=== PATIENT | male | born 1945 | race Caucasian/White ===

== ENCOUNTER 2016-07-13 12:41 | Outpatient (CLI) ==
[2016-07-13 13:16] LABS: PROTHROMBIN TIME 38.1 SEC (9.3-11.0)
== END 2016-07-13 12:42 | disposition home or self-care (01) ==
LOC: NONPT 12:41
PROVIDERS: ATTEND Internal Medicine
DX: Z51.81 Encounter for therapeutic drug level monitoring (principal); Z79.01 Long term (current) use of anticoagulants
CPT/HCPCS: 85610

== ENCOUNTER 2016-07-28 13:55 | Outpatient (CLI) | END 2016-07-28 13:56 | disposition home or self-care (01) | LOC: NONPT 13:55 | PROVIDERS: ATTEND Internal Medicine | DX: Z51.81 Encounter for therapeutic drug level monitoring (principal); Z79.01 Long term (current) use of anticoagulants | CPT/HCPCS: 85610 ==

== ENCOUNTER 2016-08-12 13:18 | Outpatient (CLI) ==
[2016-08-12 13:36] LABS: PROTHROMBIN TIME 27.2 SEC (9.3-11.0)
== END 2016-08-12 13:19 | disposition home or self-care (01) ==
LOC: NONPT 13:18
PROVIDERS: ATTEND Internal Medicine
DX: Z51.81 Encounter for therapeutic drug level monitoring (principal); Z79.01 Long term (current) use of anticoagulants
CPT/HCPCS: 85610

== ENCOUNTER 2017-06-20 08:30 | Outpatient (CLI) ==
[2017-06-20 16:30] VITALS: BMI 49.8
== END 2017-06-20 08:31 | disposition left against medical advice (07) ==
LOC: AMBL 08:30
PROVIDERS: ATTEND Internal Medicine
DX: E66.9 Obesity, unspecified (principal); W07.XXXA Fall from chair, initial encounter

== ENCOUNTER 2017-06-20 16:21 | Emergency (ER) ==
[2017-06-20] MEDS ORDERED: SODIUM CHLORIDE 1,000 ML IV STA ×2 (16:29)
[2017-06-20 16:30] VITALS: TEMP 99.6; BMI 49.8
[2017-06-20] MEDS ORDERED: ROCEPHIN 2 GM in SODIUM CHLORIDE 100 ML IV STA (16:30)
[2017-06-20] MEDS ORDERED: LOPRESSOR IVP STA (16:34)
[2017-06-20 16:37] LABS: BASOPHILS % (AUTO) 0.2 % (0.0-3.0); HEMATOCRIT 39.9 % (42.0-52.0); HEMOGLOBIN 13.4 g/dl (14.0-18.0); IMMATURE GRANULOCYTE % (AUTO) 0.6 % (0.0-5.0); LYMPHOCYTES # (AUTO) 0.4 K/uL (0.60-3.4); LYMPHOCYTES % (AUTO) 3.1 (10.0-50.0); MEAN CORPUSCULAR HEMOGLOBIN 29.6 pg (27.0-31.0); MEAN CORPUSCULAR HGB CONC 33.6 (31.8-35.4); MEAN CORPUSCULAR VOLUME 88.1 fl (80.0-94.0); MONOCYTES # (AUTO) 1.5 K/uL (0.4-2.0); MONOCYTES % (AUTO) 10.8 (0-10); NEUTROPHILS % (AUTO) 85.3; PLATELET COUNT 248 10^3/uL (140-440); RED BLOOD COUNT 4.53 10^6/ul (4.70-6.10); WHITE BLOOD COUNT 14.04 K/ul (4.2-10.2)
[2017-06-20] MEDS ORDERED: ROCEPHIN ONE (16:39)
[2017-06-20 16:42] LABS: ABG PCO2 32.3 mmHg (35-45); ABG PH 7.441 (7.35-7.45)
[2017-06-20 16:43] LABS: ABG BASE EXCESS -2 (-2.0-2.0); ABG TCO2 23 (22.0-28.0)
--- NOTE | 2017-06-20 16:56 | DI ---
EXAM: Single frontal view of the chest HISTORY: Shortness of breath. COMPARISON: None FINDINGS: Cardiomediastinal silhouette is enlarged. There is pulmonary vascular indistinctness and g round-glass. There is no pneumothorax. Questionable pleural effusions are present. There is minima l ground-glass in the lung bases. The osseous structures are unremarkable. IMPRESSION: 1. Cardiomegaly with pulmonary vascular indistinctness suggestive of pulmonary edema. 2. There is questionable small pleural effusions with bilateral lower lobe ground-glass and may repr esent a component of atelectasis.
[2017-06-20 17:18] LABS: PARTIAL THROMBOPLASTIN TIME 42.4 SEC (23.9-40.0)
[2017-06-20 17:21] LABS: PROTHROMBIN TIME 31.8 SEC (9.3-11.0)
[2017-06-20 17:28] LABS: ALBUMIN 2.5 g/dL (3.4-5.0); ALBUMIN/GLOBULIN RATIO 0.44; ANION GAP 17.1; BILIRUBIN,TOTAL 0.81 mg/dL (0.00-1.20); BUN/CREATININE RATIO 17.64; CALCIUM 9.1 mg/dL (8.2-10.2); CREATININE 2.04 mg/dL (0.60-1.10); POTASSIUM 3.1 mmol/L (3.5-5.1); TOTAL PROTEIN 8.2 g/dL (5.8-8.1); TROPONIN I 0.151 ng/ml (0.0000-0.4000)
--- NOTE | 2017-06-20 17:40 | ED.PDOC ---
General Stated Complaint: weakness Time Seen by Physician: 16:22 (was on the tolet for a while he legs went numb tried to get up and couldnt and fell) Mode of Arrival: Ambulance Information Source: Patient Exam Limitations: No limitations, Other (arrived in no acute distress but had Afib with RVR no neuro deficits noted ) Nursing and Triage Documentation Reviewed and Agree: Yes <OLIVER RICHMOND - Last Filed: 06/20/17 18:01> <JUN BIRMINGHAM - Last Filed: 06/22/17 19:46> ED Provider: Dr. JUN BIRMINGHAM Chief Complaint: Weakness Review of Systems - Review Of Systems Constitutional: Reports: No symptoms Eyes: Reports: No symptoms Ears, Nose, Mouth, Throat: Reports: No symptoms Respiratory: Reports: Short of air Cardiac: Reports: Irregular heart rate, Palpitations GI: Reports: No symptoms : Reports: No symptoms Musculoskeletal: Reports: Joint pain Skin: Reports: No symptoms Neurological: Reports: No symptoms Endocrine: Reports: No symptoms Hematologic/Lymphatic: Reports: No symptoms All Other Systems: Reviewed and Negative <JUN BIRMINGHAM - Last Filed: 06/22/17 19:46> Past Medical History - Past Medical History Previously Healthy: No Endocrine: Reports: None Cardiovascular: Reports: Hypertension Respiratory: Reports: Unknown Hematological: Reports: Unknown Gastrointestinal: Reports: Unknown Genitourinary: Reports: Unknown Neuro/Psych: Reports: Unknown Musculoskeletal: Reports: Unknown Cancer: Reports: Unknown - Surgical History General Surgical History: Reports: None - Family History Family History: Reports: None - Social History Smoking Status: Former smoker Hx Substance Use: No Alcohol Screening: None <OLIVER RICHMOND - Last Filed: 06/20/17 18:01> - Past Medical History Previously Healthy: No Endocrine: Reports: Unknown Cardiovascular: Reports: Hypertension, A-Fib Respiratory: Reports: Unknown Hematological: Reports: Unknown Gastrointestinal: Reports: Unknown Genitourinary: Reports: Unknown Neuro/Psych: Reports: Unknown Musculoskeletal: Reports: Unknown Cancer: Reports: Unknown - Surgical History General Surgical History: Reports: Unknown - Family History Family History: Reports: Unknown <JUN BIRMINGHAM - Last Filed: 06/22/17 19:46> Physical Exam - Physical Exam Appearance: Ill-appearing Ill-appearing: Moderate Pain Distress: Moderate Eyes: ANDREIA, EOMI, Conjunctiva clear ENT: Dry mucosa Respiratory: Breath sounds diminished, Rhonchi Cardiovascular: Irregular rhythm, Tachycardia GI/: Soft, Nontender, No masses, Bowel sounds normal, No Organomegaly Musculoskeletal: Edema (bilatera lower ext see photos) Skin: Warm, Dry, Normal color Neurological: Sensation intact, Motor intact, Reflexes intact, Cranial nerves intact, Alert, Oriented Psychiatric: Affect appropriate, Mood appropriate <OLIVER RICHMOND - Last Filed: 06/20/17 18:01> - Physical Exam Appearance: Obese Eyes: ANDREIA, EOMI, Conjunctiva clear ENT: Ears normal, Nose normal, Oropharynx normal Respiratory: Airway patent, Breath sounds clear, Breath sounds equal, Respirations nonlabored Cardiovascular: RRR, Pulses normal, No rub, No murmur GI/: Soft, Nontender, No masses, Bowel sounds normal, No Organomegaly Musculoskeletal: Normal strength, ROM intact, No edema, No calf tenderness Skin: Warm, Dry, Normal color Neurological: Sensation intact, Motor intact, Reflexes intact, Cranial nerves intact, Alert, Oriented Psychiatric: Affect appropriate, Mood appropriate <JUN BIRMINGHAM - Last Filed: 06/22/17 19:46> Interpretation - Stem Roller Rhythm: Other (Afib with RVR) <OLIVER RICHMOND - Last Filed: 06/20/17 18:01> Physician Notification - Case Discussed Physician Notified: dr johnson <JUN BIRMINGHAM - Last Filed: 06/22/17 19:46> Critical Care Note - Critical Care Note Total Time (mins): 2 <OLIVER RICHMOND - Last Filed: 06/20/17 18:01> - Critical Care Note Total Time (mins): 30 <JUN BIRMINGHAM - Last Filed: 06/22/17 19:46> Course - Course Hematology/Chemistry: 06/20/17 16:30 06/20/17 16:30 <OLIVER RICHMOND - Last Filed: 06/20/17 18:01> - Course Hematology/Chemistry: 06/20/17 16:30 06/20/17 16:30 <JUN BIRMINGHAM - Last Filed: 06/22/17 19:46> - Course Orders, Labs, Meds: Lab Review 06/20/17 06/20/17 06/20/17 16:28 16:30 16:30 WBC 14.04 H RBC 4.53 L Hgb 13.4 L Hct 39.9 L MCV 88.1 MCH 29.6 MCHC 33.6 RDW Coeff of Julian 15.9 H Plt Count 248 Immature Gran % (Auto) 0.6 Neut % (Auto) 85.3 Lymph % (Auto) 3.1 L [place] % (Auto) 10.8 H Eos % (Auto) 0.0 Baso % (Auto) 0.2 Immature Gran # (Auto) 0.1 Neut # 12.0 H Lymph # 0.4 L [place] # 1.5 Eos # 0.0 Baso # 0.0 PT INR APTT D-Dimer (Manual) Puncture Site Rr O2 Saturation 91.0 L ABG pH 7.441 ABG pCO2 32.3 L ABG pO2 57.0 L* ABG HCO3 22.0 ABG Total CO2 23 ABG Base Excess -2 FiO2 % 21.0 Sodium 137 Potassium 3.1 L Chloride 103 Carbon Dioxide 20 L Anion Gap 17.1 BUN 36 H Creatinine 2.04 H Estimated GFR (MDRD) 32.00 BUN/Creatinine Ratio 17.64 Glucose 136 H Lactic Acid Calcium 9.1 Total Bilirubin 0.81 AST 158 H ALT 31 Alkaline Phosphatase 69 Total Creatine Kinase 92679 CK-MB (CK-2) 20.1 H* CK-MB (CK-2) % 0.89963 Troponin I 0.1510 Total Protein 8.2 H Albumin 2.5 L Globulin 5.7 Albumin/Globulin Ratio 0.44 Procalcitonin TSH 0.766 Free T4 1.01 06/20/17 06/20/17 06/20/17 16:30 16:30 16:30 WBC RBC Hgb Hct MCV MCH MCHC RDW Coeff of Julian Plt Count Immature Gran % (Auto) Neut % (Auto) Lymph % (Auto) [place] % (Auto) Eos % (Auto) Baso % (Auto) Immature Gran # (Auto) Neut # Lymph # [place] # Eos # Baso # PT 31.8 H INR 3.23 APTT 42.4 H D-Dimer (Manual) 3684.63 Puncture Site O2 Saturation ABG pH ABG pCO2 ABG pO2 ABG HCO3 ABG Total CO2 ABG Base Excess FiO2 % Sodium Potassium Chloride Carbon Dioxide Anion Gap BUN Creatinine Estimated GFR (MDRD) BUN/Creatinine Ratio Glucose Lactic Acid Calcium Total Bilirubin AST ALT Alkaline Phosphatase Total Creatine Kinase CK-MB (CK-2) CK-MB (CK-2) % Troponin I Total Protein Albumin Globulin Albumin/Globulin Ratio Procalcitonin 1.99 TSH Free T4 06/20/17 16:52 WBC RBC Hgb Hct MCV MCH MCHC RDW Coeff of Julian Plt Count Immature Gran % (Auto) Neut % (Auto) Lymph % (Auto) [place] % (Auto) Eos % (Auto) Baso % (Auto) Immature Gran # (Auto) Neut # Lymph # [place] # Eos # Baso # PT INR APTT D-Dimer (Manual) Puncture Site O2 Saturation ABG pH ABG pCO2 ABG pO2 ABG HCO3 ABG Total CO2 ABG Base Excess FiO2 % Sodium Potassium Chloride Carbon Dioxide Anion Gap BUN Creatinine Estimated GFR (MDRD) BUN/Creatinine Ratio Glucose Lactic Acid 17.8 Calcium Total Bilirubin AST ALT Alkaline Phosphatase Total Creatine Kinase CK-MB (CK-2) CK-MB (CK-2) % Troponin I Total Protein Albumin Globulin Albumin/Globulin Ratio Procalcitonin TSH Free T4 Orders Category Date Time Status ABG DRAW REQUEST Stat CARDIO 06/20/17 16:28 Completed EKG-(ED ONLY) Stat CARDIO 06/20/17 16:27 Completed EKG-(ED ONLY) Stat CARDIO 06/20/17 17:00 Completed TRANSFER TO OUTSIDE FACILITY .TO [facility] 06/20/17 20:29 Active ([place], [place]) WRITE TRANSFER/SBAR NOTE ONCE CARE 06/20/17 20:29 Completed DISCHARGE ASSESSMENT ONCE DISCHARGE 06/20/17 20:29 Completed WRITE DISCHARGE NOTE ONCE DISCHARGE 06/20/17 20:29 Completed ED IV/MEDIPORT/POWERPORT .ONCE EMERGENCY 06/20/17 16:27 Active ABG Stat LAB 06/20/17 16:28 Completed BLOOD CULTURE Stat LAB 06/20/17 16:55 Results CBC W/ AUTO DIFF Stat LAB 06/20/17 16:30 Completed COMPREHENSIVE METABOLIC PANEL Stat LAB 06/20/17 16:30 Completed CREATINE KINASE Stat LAB 06/20/17 16:30 Completed D-DIMER Stat LAB 06/20/17 16:30 Completed FREE T4 (FREE THYROXINE) Stat LAB 06/20/17 16:30 Completed LACTIC ACID Stat LAB 06/20/17 16:52 Completed PARTIAL THROMBOPLASTIN TIME Stat LAB 06/20/17 16:30 Completed PROCALCITONIN Stat LAB 06/20/17 16:30 Completed PT WITH INR Stat LAB 06/20/17 16:30 Completed THYROID STIMULATING HORMONE Stat LAB 06/20/17 16:30 Completed TROPONIN I Stat LAB 06/20/17 16:30 Completed 0.9 % Sodium Chloride [Saline Flush] MEDS 06/20/17 16:27 Discontinued 1 syr IVF PRN PRN 0.9 % Sodium Chloride [Sodium Chloride] 100 ml MEDS 06/20/17 20:00 Discontinued Diltiazem HCl Inj [Cardizem Inj] 125 mg IV 10 mg/hr Ceftriaxone Sodium [Rocephin] MEDS 06/20/17 16:39 Discontinued 2 gm .ROUTE .STK-MED ONE Ceftriaxone Sodium [Rocephin] 2 gm MEDS 06/20/17 16:30 Discontinued 0.9 % Sodium Chloride [Sodium Chloride] 100 ml IV ONCE Diltiazem HCl Inj [Cardizem Inj] MEDS 06/20/17 18:18 Discontinued 15 mg IVP ONCE STA Metoprolol Tartrate [Lopressor] MEDS 06/20/17 16:34 Discontinued 2.5 mg IVP ONCE STA Sodium Chloride 0.9% [Sodium Chloride] 1,000 ml MEDS 06/20/17 16:29 Discontinued IV 125 mls/hr Sodium Chloride 0.9% [Sodium Chloride] 1,000 ml MEDS 06/20/17 16:29 Discontinued IV BOLUS CHEST, 1V AP ONLY Stat RADS 06/20/17 16:[address] ABDOMEN/PELVIS WO CONTRAST Stat RADS 06/20/17 18:[address] PELVIS W/O CONTRAST Stat RADS 06/20/17 18:51 Completed Medications Discontinued Medications Generic Name Dose Route Start Last Admin Trade Name Freq PRN Reason Stop Dose Admin Diltiazem HCl 15 mg 06/20/17 18:18 06/20/17 18:24 Cardizem Inj IVP 06/20/17 18:19 15 mg ONCE STA Administration Sodium Chloride 1,000 mls @ 1,000 mls/hr 06/20/17 16:29 06/20/17 16:59 Sodium Chloride IV 06/20/17 17:28 Not Given BOLUS STA Sodium Chloride 1,000 mls @ 125 mls/hr 06/20/17 16:29 06/20/17 16:53 Sodium Chloride IV 06/21/17 00:28 125 mls/hr .Q8H STA Administration Ceftriaxone Sodium 2 gm/ 100 mls @ 100 mls/hr 06/20/17 16:30 06/20/17 16:53 Sodium Chloride IV 06/20/17 17:29 100 mls/hr ONCE STA Administration Diltiazem HCl 125 mg/ Sodium 125 mls @ 10 mls/hr 06/20/17 20:00 06/20/17 20: 02 Chloride IV 10 mg/hr .[id number] SANNA 10 mls/hr Protocol Administration 10 MG/HR Metoprolol Tartrate 2.5 mg 06/20/17 16:34 06/20/17 16:43 Lopressor IVP 06/20/17 16:35 2.5 mg ONCE STA Administration Sodium Chloride 1 syr 06/20/17 16:27 06/20/17 16:55 Saline Flush IVF 1 syr PRN PRN Administration To flush IV Vital Signs: Temp Pulse Resp BP Pulse Ox 06/20/17 20:02 147 H 26 H 111/91 H 06/20/17 16:22 99.6 F 181 H 30 H 107/68 90 L Departure - Departure Pt referred to PMD for follow-up: Yes Disposition Discussed With: Patient <OLIVER RICHMOND - Last Filed: 06/20/17 18:01> - Departure Time of Disposition: 20:28 Pt referred to PMD for follow-up: Yes Transfer Form Completed: Yes Disposition Discussed With: Patient, Family <SALFANTAJUN - Last Filed: 06/22/17 19:46> - Departure Disposition: TSF SHORT-TRM HOSP Discharge Problem: Rhabdomyolysis Qualifiers: Rhabdomyolysis type: traumatic Encounter type: initial encounter Qualified Code (s): T79.6XXA - Traumatic ischemia of muscle, initial encounter Afib Qualifiers: Atrial fibrillation type: persistent Qualified Code(s): I48.1 - Persistent atrial fibrillation Instructions: Rhabdomyolysis (ED) Condition: Good Additional Instructions: Please call your Family Physician as soon as possible to schedule a follow-up appointment. Allergies/Adverse Reactions: Allergies Sulfa (Sulfonamide Antibiotics) Adverse Reaction (Verified 06/20/17 16:32) Home Medications: Ambulatory Orders Bumetanide 1 mg PO DAILY 06/20/17 Lisinopril [Zestril] 5 mg PO DAILY 06/20/17 Metoprolol Tartrate [Lopressor] 50 mg PO BID 06/20/17 Spironolactone [Aldactone] 50 mg PO DAILY 06/20/17 Warfarin Sodium [Coumadin] 5 mg PO SUWE 06/20/17 Warfarin Sodium [Coumadin] 7.5 mg PO MOTUTHFRSA 06/20/17
[2017-06-20 17:44] LABS: CREATINE KINASE MB 20.1 ng/ml (0.0-3.6)
[2017-06-20] MEDS ORDERED: CARDIZEM INJ IVP STA (18:18)
--- NOTE | 2017-06-20 19:45 | CT ---
Exam: CT of the abdomen pelvis without contrast History: Fall with abdominal pain Technique: [address] of the abdomen and pelvis without intravascular contrast FINDINGS: The lung bases are clear. There is a small hiatus hernia. Prior cholecystectomy. The li margaret, pancreas, spleen and adrenal glands appear normal. Mild left hydronephrosis and hydroureter wit h surrounding inflammation. There is a punctate ureterovesicular junction calculus. The appendix is normal. The cecum is mobile. Atherosclerotic calcification of the aorta without aneurysm. Left ureterovesicular junction punctate calculus. Pelvic genitourinary structures appear normal othe rwise. No acute findings of the skeleton including the hips and pelvis. Pars interarticularis defec ts of L3 and L5. Impression: 1. Mild left hydronephrosis and hydroureter secondary to a punctate ureterovesicular junction calcul us. No acute findings of the abdomen or pelvis otherwise.
--- NOTE | 2017-06-20 19:51 | CT ---
Exam: CT pelvis without contrast History: Fall with pelvis pain Technique: [address] bony pelvis with multiplanar reformations FINDINGS: Pelvic ring is intact. Femoral hips are intact. Mild, symmetric bilateral hip osteoarthr itic change. Left ureterovesicular junction punctate calculus. Impression: No acute findings of the bony pelvis or femoral hips.
[2017-06-20] MEDS ORDERED: CARDIZEM INJ 125 MG in SODIUM CHLORIDE 100 ML IV SCH (20:00)
[2017-06-20 20:03] VITALS: BP 111/91
== END 2017-06-20 21:03 | disposition short-term general hospital (02) ==
LOC: ED 16:21
DX: T79.6XXA Traumatic ischemia of muscle, initial encounter (principal); I48.1 Persistent atrial fibrillation; R06.02 Shortness of breath; I10 Essential (primary) hypertension; R60.0 Localized edema; Z79.01 Long term (current) use of anticoagulants; Z79.899 Other long term (current) drug therapy; W19.XXXA Unspecified fall, initial encounter; J96.90 Respiratory failure, unspecified, unspecified whether with hypoxia or hypercapnia; N19 Unspecified kidney failure
CPT/HCPCS: 36415; 80053; 82550; 82553; 82803; 83605; 84145; 84439; 84443; 84484; 85025; 85379; 85610; 85730; 87040; 93005; 93010; 96361; 96365; 96367; 96375; 99285

== ENCOUNTER 2017-06-28 18:07 | Outpatient (CLI) | END 2017-06-28 18:08 | disposition short-term general hospital (02) | LOC: AMBL 18:07 | PROVIDERS: ATTEND Emergency Medicine | DX: R06.02 Shortness of breath (principal); I50.9 Heart failure, unspecified; R40.4 Transient alteration of awareness; R60.0 Localized edema; R09.02 Hypoxemia; R40.2421 Glasgow coma scale score 9-12, in the field [EMT or ambulance] ==

== ENCOUNTER 2017-09-06 09:47 | Outpatient (CLI) | payer OTHER | END 2017-09-06 09:48 | disposition home or self-care (01) | LOC: NONPT 09:47 | PROVIDERS: ATTEND Family Medicine | DX: R35.0 Frequency of micturition (principal); R41.0 Disorientation, unspecified | CPT/HCPCS: 81001; 87086 ==

== ENCOUNTER 2017-11-25 14:30 | Emergency (ER) | payer OTHER ==
[2017-11-25 14:41] VITALS: BP 141/98; TEMP 97.2; BMI 53.4
--- NOTE | 2017-11-25 17:48 | CT ---
EXAM: Noncontrast CT of the chest HISTORY: Leg edema, recent weight gain COMPARISON: 06/20/2017 chest x-ray TECHNIQUE: Noncontrast CT of the chest FINDINGS: A few right middle lobe pulmonary nodules are seen with the largest measuring 6 mm on axial image 29. A few calcified granulomas are present. There are mild bilateral ground-glass opacities which are mo st conspicuous within the lower lobes and lingula. This is likely accentuated by the patient motion. No pneumothorax or pleural effusion is seen. The heart is enlarged. Atherosclerotic calcifications are present including coronary arteries. No me diastinal lymphadenopathy is seen. A left hilar calcified lymph node is present. The gallbladder has been removed. A right renal cyst is suspected. There is subacute appearing frac ture of the right seventh and eighth anterolateral ribs. There is subacute fracture of the left peng nth, eighth and ninth lateral ribs. There is mild to moderate multilevel thoracic degenerative disc d isease. There are severe degenerative changes of the right shoulder. IMPRESSION: Mild bilateral nonspecific ground-glass opacities which could represent atelectasis, edema or pneumon itis. Cardiomegaly. A few right middle lobe pulmonary nodules with the largest measuring 6 mm. Follow-up CT in 3-6 month s is recommended Evidence of prior granulomatous infection. Atherosclerosis including coronary arteries. Bilateral subacute appearing rib fractures. Severe right glenohumeral degenerative joint disease.
--- NOTE | 2017-11-29 13:09 | ER ---
DATE OF VISIT: 11/25/17 CHIEF COMPLAINT: Rapid weight gain. HISTORY OF PRESENT ILLNESS: 72 year old male , as resident of [facility] who has transferred to my services a few weeks ago, had a rapid gain of weight in a day. The longterm had contacted the office and informed us that Mr. Thacker did weigh 426 pounds yesterday and weighed 432 pounds today. The patient, however, does not have any overt symptoms for the rapid increase in weight. I had instructed the longterm to weigh him again and weigh him twice on the same scale. They did not come up with a different number. I then directed for them to send him to the emergency room so that I could evaluate him instead of admit him to the hospital. PHYSICAL EXAMINATION: GENERAL: The patient on examination is alert and denies any shortness of breath or any chest pain or abdominal pain. He has legs that are weeping and has dressing consisting of Unna boot that is being changed twice a week. This had been ongoing for several months. He has no problems swallowing food and no burning on urination. His color is good. VITAL SIGNS: The patient's vital signs at the emergency room showed a temperature of 97.2, pulse of 88, respiratory rate 20, oxygen saturation 97 at room air. Blood pressure 141/98. He is 6'4", weighed 438 pounds and 15.045 ounces. BMI 53.4. HEAD: Unremarkable. FACE: Symmetrical and equal with no facial weakness and no redness. No remarkable tenderness to palpation under pressure in the frontal or maxillary sinus areas. NECK: No masses, no bruit. CHEST: Essentially symmetrical and equal. Expansion is acceptable. LUNGS: Breath sounds are heard in both sides. No rales or wheezing. HEART: Audible and occasionally irregular. Not tachycardic. No murmurs. ABDOMEN: Markedly protuberant and pendulous. No tenderness. LOWER EXTREMITIES: Both legs are covered with the Unna boot. ASSESSMENT: 1. SUDDEN 6 POUND INCREASE IN 24 HOURS, ETIOLOGY UNDETERMINED. 2. EXTREME OBESITY WITH 53.4 BMI. 3. HISTORY OF CONGESTIVE HEART FAILURE 4. HISTORY OF HYPERTENSION 5. HISTORY OF DIABETES MELLITUS 6. HISTORY OF BILATERAL LEG EDEMA WITH CONTINUED SEROUS DRAINAGE 7. HISTORY OF SMOKING, STOPPED 8. HISTORY OF CHOLECYSTECTOMY PLAN: 1. CBC, CMP, Lipid, A1C, UA, insulin level, plasma C-Peptid, ProTime. 2. EKG. 3. CT scan of the chest with no contrast. 4. BNP. The EKG showed atrial fibrillation and that probably is the reason why this patient is given Coumadin. I could not get it from the records that I had reviewed. CBC showed moderate anemia and maybe some iron deficiency. The RDW is 17.4, elevated. Hemoglobin 11.8, hematocrit 39.2. MCV 88.3 and MCH 26.6. INR 1.52. Electrolytes normal. Renal panel normal. E GFR 75, blood sugar 97, BNP 166, total protein 8.5, lipids normal. Triglycerides 58, cholesterol 99, LDL cholesterol 52, VLDL 12, HDL 35, ratio 2.8. Urinalysis normal. I do not have the A1C, Insulin level, as well as plasma C-Peptid level. Medications at the longterm: Aldactone 25 mg tablet, two tablets daily Metoprolol tartrate 50 mg twice a day Lisinopril 5 mg daily Bumex 1 mg daily Warfarin 5 mg on Tuesday and Tuesday, 7.5 mg on Tuesday, Tuesday, , Tuesday and Tuesday. Benadryl 25 mg prn Tylenol 1000 mg every 8 hours prn DRUG ALLERGIES: Sulfa. CT scan of the chest revealed no significant acute findings. We had discussed the results with the patient and his friend, Nilay Betancur, who was present. I did tell him the abnormal findings are not acute and that he has moderate anemia and maybe iron. His kidneys are functioning and his heart has atrial fibrillation and is probably the reason why he was getting Coumadin. His liver is normal and his kidneys are normal. I could not arrive at a reason for the weight gain of six pounds in one day. He told me that they did not apply the boot or dressing on both legs and that might have been the reason, since the legs had swollen much more. He now has a dressing. It is due to be changed Tuesday. I offered for him to stay in the hospital, so I can monitor him well, but he wanted to go home to the longterm. I did advise him not to eat anything, no snacks at all and his friend does bring cookies that was baked by his . I told him that he should not be eating that. If he snacks it would be in the form of carrots or celery and if he feels hungry that he should just drink cold water. Before eating also that he should drink a glass of water before he eats. This patient was diagnosed to have diabetes, however he is not on any medications for diabetes and his blood sugar was normal. 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 It is hard for these patient's to lose weight more so if he did have an insulin resistant syndrome. I did inform the patient that I felt that he needed to lose weight and good part of that effort should come from him. I would help him along. It is not easy and that he has to feel hungry in order to lose weight. For his legs, he has to elevate his legs all of the time above his heart level unless he is going to the bathroom or eating. If he is standing, he should be walking. He was complaining about the walker at the longterm, which is small. We should try to get a walker that is bigger and wider. I did inform the patient that I believe that if he will elevate his legs above his heart as often as possible that the serous drainage would probably stop. He had been using this Unna boot for months and months without any improvement. I told them that he can improve himself and a doctor would be able to help him along the way. I informed his friend not to bring cookies, even there is zero calories. There is no such thing as zero calories food that are from wheat or flour or some kind. Our goal for now is to lose the 400 pounds. I do feel that this patient has the capacity to do that and probably will be able to go home and be self sufficient. This is in his ballpark. I would like to know the insulin level, as well as the plasma C-Peptid level and we would maybe give him Trulicity even if he is not fully diabetic, but insulin resistant. He will be going back to the longterm and resume all of his previous medications and again reiterated to drink water if he is hungry and drink a glass of water before eating. He should elevate his legs above heart all of the time. That would be an accomplishment to have his legs dried up and without any dressing. It will probably take some time. I told him that ball is in his corner. PROGNOSIS: Poor if this patient continues to do the same. Again, I reiterated that there was a doctor that came to his room and told him that he has cancer in the back. It happened today instead of yesterday. He could not give me the name of the doctor that came in to see him. NAZANIN
== END 2017-11-25 19:40 ==
LOC: ED 14:30
DX: R63.5 Abnormal weight gain (principal); E66.9 Obesity, unspecified; Z68.43 Body mass index [BMI] 50.0-59.9, adult; R60.0 Localized edema; E11.9 Type 2 diabetes mellitus without complications; I50.9 Heart failure, unspecified; I10 Essential (primary) hypertension; I48.91 Unspecified atrial fibrillation; D64.9 Anemia, unspecified; Z79.01 Long term (current) use of anticoagulants; Z79.899 Other long term (current) drug therapy; Z87.891 Personal history of nicotine dependence
CPT/HCPCS: 36415; 80053; 80061; 81001; 83525; 83880; 84681; 85025; 85610; 93005; 93010; 99283

== ENCOUNTER 2017-12-29 09:04 | Inpatient (IN) ==
[2017-12-29 09:45] VITALS: BMI 49.4
--- NOTE | 2017-12-29 14:35 | DI ---
EXAM: Two views of the chest. History: Bilateral leg edema. Comparison: Chest radiograph 06/20/2017, chest CT 11/25/2017 Findings: Heart is enlarged. Coronary calcifications. Atherosclerotic vascular calcifications of t he aortic knob. There is mild early interstitial edema. No pleural fluid and no pneumothorax. Calc ified granulomas again seen. The thorax. No acute osseous abnormalities. Impression: 1. Cardiomegaly with early interstitial edema. 2. Coronary artery disease
[2017-12-29] MEDS ORDERED: BISACODYL 10 MG PO PRN (19:30)
[2017-12-29] MEDS ORDERED: BENADRYL PO PRN (19:31)
[2017-12-29] MEDS ORDERED: DEXTROMETHORPHAN PO PRN (19:31)
[2017-12-29] MEDS ORDERED: GUAIFENESIN PO PRN (19:31)
[2017-12-29] MEDS ORDERED: [UNRECOGNIZED DRUG - OTHER] PO PRN (19:31)
[2017-12-29] MEDS ORDERED: FLUTICASONE FUROATE NAS PRN (19:31)
[2017-12-29] MEDS ORDERED: MILK OF MAGNESIA PO PRN (19:34)
[2017-12-29] MEDS ORDERED: LASIX IVP STA (20:16)
[2017-12-29] MEDS ORDERED: LASIX ONE (21:40)
[2017-12-29] MEDS ORDERED: MAXIPIME ONE (22:04)
[2017-12-29] MEDS: ELIQUIS PO SCH (22:06)
[2017-12-29] MEDS ORDERED: BENADRYL ONE (22:28)
[2017-12-29] MEDS: TYLENOL PO PRN (22:29)
[2017-12-29] MEDS: MAXIPIME 2 GM in SODIUM CHLORIDE 100 ML IV SCH (22:54)
[2017-12-30] MEDS ORDERED: MAXIPIME ONE ×2 (03:03→03:10)
[2017-12-30] MEDS ORDERED: LASIX TAB PO SCH (06:00)
[2017-12-30] MEDS: MAXIPIME 2 GM in SODIUM CHLORIDE 100 ML IV SCH ×3 (06:12→20:15)
[2017-12-30] MEDS ORDERED: DULCOLAX PO PRN (07:47)
[2017-12-30] MEDS ORDERED: [UNRECOGNIZED DRUG - OTHER] PO SCH (09:00)
[2017-12-30] MEDS ORDERED: METOPROLOL SU PO SCH (09:00)
[2017-12-30] MEDS ORDERED: HYDROCHLOROTHIAZ PO SCH (09:00)
[2017-12-30] MEDS: MULTIVITAMIN TABLET PO SCH (09:57)
[2017-12-30] MEDS: MUCINEX DM ER 600-30 MG TABLET PO SCH ×2 (09:58→20:14)
[2017-12-30] MEDS: HYDROCHLOROTHIAZIDE PO SCH (09:59)
[2017-12-30] MEDS: CARDIZEM CD PO SCH (09:59)
[2017-12-30] MEDS: ALDACTONE PO SCH (09:59)
[2017-12-30] MEDS: TOPROL XL PO SCH (09:59)
[2017-12-30] MEDS: ELIQUIS PO SCH ×2 (10:00→20:13)
[2017-12-30] MEDS: GOLD BOND ULTIMATE HEALING TP SCH ×2 (10:03→20:15)
[2017-12-30] MEDS ORDERED: FLONASE NAS PRN (14:40)
[2017-12-30] MEDS: LIPITOR PO SCH (16:47)
[2017-12-31] MEDS: MAXIPIME 2 GM in SODIUM CHLORIDE 100 ML IV SCH ×3 (05:59→21:04)
[2017-12-31] MEDS: LASIX TAB PO SCH (05:59)
[2017-12-31] MEDS: BENADRYL PO PRN ×2 (06:00→16:22)
[2017-12-31] MEDS: HYDROCHLOROTHIAZIDE PO SCH (08:42)
[2017-12-31] MEDS: ALDACTONE PO SCH (08:42)
[2017-12-31] MEDS: MUCINEX DM ER 600-30 MG TABLET PO SCH ×2 (08:43→21:05)
[2017-12-31] MEDS: TOPROL XL PO SCH (08:43)
[2017-12-31] MEDS: ELIQUIS PO SCH ×2 (08:43→21:05)
[2017-12-31] MEDS: MULTIVITAMIN TABLET PO SCH (08:44)
[2017-12-31] MEDS: GOLD BOND ULTIMATE HEALING TP SCH ×2 (08:44→21:06)
[2017-12-31] MEDS: CARDIZEM CD PO SCH (08:44)
[2017-12-31] MEDS: LIPITOR PO SCH (16:22)
[2017-12-31] MEDS: TYLENOL PO PRN (16:22)
[2018-01-01] MEDS: MAXIPIME 2 GM in SODIUM CHLORIDE 100 ML IV SCH ×3 (04:40→20:27)
[2018-01-01] MEDS: TYLENOL PO PRN (05:56)
[2018-01-01] MEDS: BENADRYL PO PRN (05:57)
[2018-01-01] MEDS: LASIX TAB PO SCH (06:31)
[2018-01-01] MEDS: GOLD BOND ULTIMATE HEALING TP SCH ×2 (09:05→20:31)
[2018-01-01] MEDS: ALDACTONE PO SCH (09:05)
[2018-01-01] MEDS: TOPROL XL PO SCH (09:05)
[2018-01-01] MEDS: MULTIVITAMIN TABLET PO SCH (09:05)
[2018-01-01] MEDS: HYDROCHLOROTHIAZIDE PO SCH (09:05)
[2018-01-01] MEDS: ELIQUIS PO SCH ×2 (09:05→20:27)
[2018-01-01] MEDS: MUCINEX DM ER 600-30 MG TABLET PO SCH ×2 (09:05→20:27)
[2018-01-01] MEDS: CARDIZEM CD PO SCH (09:06)
[2018-01-01] MEDS: LIPITOR PO SCH (17:53)
[2018-01-02] MEDS: MAXIPIME 2 GM in SODIUM CHLORIDE 100 ML IV SCH ×2 (04:28→13:53)
[2018-01-02 05:22] VITALS: TEMP 98.1
[2018-01-02] MEDS: LASIX TAB PO SCH (06:17)
[2018-01-02] MEDS: MUCINEX DM ER 600-30 MG TABLET PO SCH (09:23)
[2018-01-02] MEDS: HYDROCHLOROTHIAZIDE PO SCH (09:23)
[2018-01-02] MEDS: ALDACTONE PO SCH (09:23)
[2018-01-02] MEDS: MULTIVITAMIN TABLET PO SCH (09:24)
[2018-01-02] MEDS: CARDIZEM CD PO SCH (09:24)
[2018-01-02] MEDS: TOPROL XL PO SCH (09:24)
[2018-01-02] MEDS: ELIQUIS PO SCH (09:25)
[2018-01-02 09:26] VITALS: BP 135/86
[2018-01-02] MEDS: TYLENOL PO PRN (09:27)
[2018-01-02] MEDS: BENADRYL PO PRN (09:27)
[2018-01-02] MEDS: GOLD BOND ULTIMATE HEALING TP SCH (13:53)
--- NOTE | 2018-03-09 13:15 | HP ---
DATE OF SERVICE: 12/29/17 CHIEF COMPLAINT: Bilateral leg edema with serous drainage and raw services with redness. The skin of both entire legs are crusted and scaly. The patient also has some shortness of breath with exertion. PAST PERSONAL HISTORY: The patient was diagnosed with atrial fibrillation using nasal oxygen, previous cholecystectomy and hernia repair. He also was diagnosed with bladder carcinoma. The patient has joint pains knees, elbows, shoulders and ankles. The patient had surgery of the right ankle, right knee times three, carpal tunnel surgery and bilateral elbow. The patient was advised that he has borderline diabetes, no medications. Colonoscopy 2015, endoscopy 2004. FAMILY HISTORY: Mother had heart problems as well as father. Both of them are diseased. SOCIAL HISTORY: The patient is single. Now resides at [facility]. He stopped smoking some 6 years ago. Denies any drug abuse or use. MEDICATIONS: (Prior to this admission) Aldactone 50 mg daily Benadryl 25 mg daily Tylenol 1,000 mg q.8hr p.r.n. Mucinex ER Mucinex DM ER 1,200 mg every 12 hours Milk of Magnesia 30 cc daily as needed Metoprolol ER/Hydrochlorothiazide 25/12.5 one daily Lipitor 10 mg daily Lasix 40 mg daily Eliquis 5 mg twice a day Flonase two sprays to each nostril q.6hr p.r.n. Bisacodyl 5 mg tablet two tablets daily Gold Iverson diabetic cream three times a day Diltiazem 180 mg capsule (Cardizem Cd) daily ALLERGIES: SULFA REVIEW OF SYSTEMS: CONSTITUTIONAL: The patient denies any fever or chills but has fatigue or chronic problem. CORE CLEANER: The patient has some headache but not severe and problems walking but not ataxia. It is just because of obesity because she has problems walking. He denies any syncopal episode or seizure disorder, tremors. VISUAL: Denies any double vision, blurred vision, loss of vision including hemianopsia. AUDITORY: Hearing is decreased. Denies any tinnitus, pain or drainage. RESPIRATORY: The patient has chronic cough with chronic obstructive sleep apnea. He has no history of hemoptysis. He is using 2L of oxygen. CARDIOVASCULAR: Denies any chest tightness, diaphoresis. He has chronic weakness. GASTROINTESTINAL: No nausea or anorexia. No dysphagia. No abdominal pain. No change in bowel habits, no blood in the stool. GENITOURINARY: The patient denies any burning on urination. He does have some urgency. MUSCULOSKELETAL: The patient has difficulty getting up because of pain in joints. He uses Tylenol 1000 mg q.8hr p.r.n. for pain. Markedly obese. 6'4" 405 lbs. BMI markedly elevated. INTEGUMENT: He has weepy legs with scales and crusted areas in both legs. There is some pruritus in these areas. No ecchymosis. ENDOCRINE: The patient is markedly obese. He denies any polyuria or polydipsia. HEMATOLOGIC: No history of prolonged bleeding or easy bruising. PSYCHIATRIC: Affect is adequate at this time. PHYSICAL EXAMINATION: GENERAL: 73-year-old male admitted to the hospital because of bilateral leg swelling, severe with serous drainage and scaly areas and crusted involving the whole leg as well as feet. The patient is alert and responsive. He is oriented. VITAL SIGNS: Temperature 97.9, pulse 100, BP left 105/88, right 121/83, respiratory rate 16. 6'4", 405 lbs. HEAD: Unremarkable. Scalp: No active dermatitis. Face: Symmetrical and equal with no facial weakness. No remarkable tenderness to palpation and/or pressure in the frontomaxillary sinus areas. EYES: Pupils equal/reactive to light, about 3 mm in size. Conjunctivae not pale. Sclerae not icteric. MOUTH: Unremarkable. THROAT: No inflammation, tumors or exudate. NECK: No masses. No palpable adenopathy. No bruit. No tenderness. No rigidity. CHEST: Essentially symmetrical and equal with limited expansion. No areas of tenderness to percussion. LUNGS: Breath sounds are heard in both sides, somewhat diminished. No rales or wheezing. HEART: Audible and regular with good tones. ABDOMEN: Markedly protuberant, pendulous. There is no redness or palpable masses. No significant tenderness. Bowel sounds are present. EXTERNAL GENITALIA/RECTAL: Not done. LOWER EXTREMITIES: The patient has edema of both lower extremities involving the foot and entire legs, right and left side. The skin is scaly and crusted. There are some serous drainage and open areas. Pedal pulses not palpable. UPPER EXTREMITIES: Symmetrical and equal. ASSESSMENT: 1. CELLULITIS, BILATERAL LOWER EXTREMITIES 2. SEVERE EDEMA WITH SEROUS DRAINAGE IN THE SKIN 3. HISTORY OF CONGESTIVE HEART FAILURE, COMPENSATED 4. MORBID OBESITY 5. HISTORY OF HYPERTENSION 6. HISTORY OF CHRONIC BILATERAL LEG EDEMA TIME SPENT: GREATER THAN 65 MINUTES MTDD
--- NOTE | 2018-03-15 10:49 | DS ---
DATE OF SERVICE: 01/02/18 PATIENT IDENTIFICATION/HOSPITAL COURSE: 73-year-old male who is a resident of [facility] was admitted to the hospital because of bilateral leg edema, serous drainage on both legs, crusted and scaly with raw surfaces. The patient's significant medical conditions atrial fibrillation, nasal oxygen at 2L/min, sleep apnea with CPAP, bladder carcinoma, insulin resistant syndrome, degenerative joint disease with surgeries. The patient on admission was 405 lbs and 6'4". Lungs were clear to auscultation but diminished breath sounds and harsh, normal sinus rhythm. Atrial fibrillation - has been medicated. Chest x-ray on admission cardiomegaly with early interstitial edema, coronary artery disease. Wound culture was done on admission and grew Providencia Stuartii sensitive to Ampicillin/Sulbactam, Cefepime, Ceftriaxone, Ciprofloxacin, Imipenem, Levofloxacin, Bactrim and Zosyn. Blood cultures were negative after 5 days. Labs on admission showed slight leukocytosis, 10,480 WBC, hemoglobin 11.6, hematocrit 39.2, MCV 87.7, MCH 26, RDW 17, coagulation profile normal. CMP slightly elevated c02 at 32, BNP 185, albumin 2.7, urinalysis normal. Resting insulin level near the upper limits of normal 18.3, 22.5 and 20.3. Repeat CBC on 01/01/18 the day before discharge now shows WBC of 7,240, hemoglobin lower 11 , hematocrit lower 36.9 from 39.2, MCV 86.8, MCH 25.9, MCHC 29.8, RDW 17.2. Platelet count normal. Repeat chemistry showed persistent elevated c02 at 32, persistent low albumin in spite of normal total protein at 2.5. Lipid panel is essentially normal except for the low HDL at 27. Triglycerides 71, total cholesterol 97, LDL 56, VLDL 14, HDL Ratio 3.6. TSH 0.808. Medications on this patient from the intermediate were continued. The patient was given Cefepime 2 gm intravenously q.8hr. Legs were washed with soap and water, dried and Gold Iverson Ultimate Healing was applied and covered with Saran Wrap. The legs were elevated as much as possible above the heart level. I tried to explain that to the patient. The patient is discharged from acute care to be admitted to transitional care for PT/OT, antibiotic administration and wound care. The patient, at time of discharge was alert, ambulatory, leg swelling is less and the crusted areas on the legs have resolved. The serous drainage also has resolved. The skin of legs now looks and appears smoother. Vital signs at discharge at 9:25 a.m. on 01/02/18 showed a temperature of 98.1, pulse 91, BP 135/86, respiratory rate 20, oxygen saturation 100 on room air questionable. This patient always had 2L of nasal oxygen. FINAL DIAGNOSES: 1. BILATERAL LOWER LEG EDEMA WITH CELLULITIS, PROVIDENCIA STUARTII. 2. MARKEDLY ELEVATED BMI. 3. HISTORY OF HEART FAILURE, MINIMAL 4. HISTORY OF ATRIAL FIBRILLATION ON MEDICATION 5. SLEEP APNEA 6. HYPERTENSION CONTROLLED PROGNOSIS: POOR I had talked with the patient with regard to his weight and his diet. I told him that we will put him on 1500 calorie diet and should eat more vegetables. He should avoid snacking. He is to drink a glass of water before eating. I did express my opinion to him that if he would lose a significant amount of weight that he most likely can go home and be self sufficient at home. He is now able to walk and still has mental capacity. TIME SPENT: GREATER THAN 30 MINUTES MTDD
== END 2018-01-02 16:37 | disposition swing bed (61) | DRG 603 ==
LOC: MEDSURG B 09:04
PROVIDERS: ADMIT General Practice; ATTEND General Practice
DX: L03.116 Cellulitis of left lower limb (principal); Z68.42 Body mass index [BMI] 45.0-49.9, adult; L03.115 Cellulitis of right lower limb; G47.30 Sleep apnea, unspecified; I10 Essential (primary) hypertension; R06.02 Shortness of breath; E66.01 Morbid (severe) obesity due to excess calories
CPT/HCPCS: 36415; 80053; 80061; 81001; 83525; 83880; 84443; 85025; 85610; 87040; 87070; 87077; 87081; 87186; 93005; 93010; 97802

== ENCOUNTER 2018-03-27 08:43 | Outpatient (CLI) | END 2018-03-27 08:44 | disposition home or self-care (01) | LOC: NONPT 08:43 | PROVIDERS: ATTEND General Practice | DX: R50.9 Fever, unspecified (principal); R35.0 Frequency of micturition | CPT/HCPCS: 81001; 87086 ==

== ENCOUNTER 2018-09-13 13:10 | Outpatient (CLI) ==
[2018-09-13 17:36] VITALS: BMI 49.8
== END 2018-09-13 13:18 | disposition short-term general hospital (02) ==
LOC: AMBL 13:10
PROVIDERS: ATTEND Internal Medicine
DX: R60.0 Localized edema (principal); R06.02 Shortness of breath; M54.9 Dorsalgia, unspecified; M25.561 Pain in right knee; R06.2 Wheezing; I48.91 Unspecified atrial fibrillation; R53.1 Weakness

== ENCOUNTER 2018-09-13 13:21 | Inpatient (IN) | payer OTHER ==
[2018-09-13] MEDS ORDERED: SODIUM CHLORIDE 1,000 ML IV STA (13:33)
[2018-09-13] MEDS ORDERED: ZOSYN 4.5 GM 4.5 GM in SODIUM CHLORIDE 100 ML IV STA (13:33)
[2018-09-13] MEDS ORDERED: URO-JET MUCOUSMEMB ONE (14:01)
--- NOTE | 2018-09-13 14:57 | CT ---
EXAM: CT head without contrast HISTORY: Altered mental status COMPARISON: None TECHNIQUE: Serial axial images of the brain were obtained from the skull base to the vertex without IV contrast. FINDINGS: The ventricles, cisterns and sulci demonstrate mild generalized volume loss. The lancaster-whi te matter junction is maintained. There is scattered low attenuation in the periventricular white ma tter with left basal ganglia chronic lacunar infarct.No midline shift or mass is identified. There i s no abnormal intra or extra-axial fluid collection. The paranasal sinuses and mastoid air cells are clear. The osseous calvarium is intact. IMPRESSION: 1. No acute intracranial abnormality or hemorrhage. 2. Mild generalized volume loss and scattered microangiopathy. If further evaluation is clinically indicated, MRI may be obtained.
--- NOTE | 2018-09-13 15:02 | CT ---
EXAM: CT THORAX HISTORY: Cough. TECHNIQUE: CT thorax without intravenous contrast. Multiplanar images presented. COMPARISON: 11/25/2017 FINDINGS: Mild cardiomegaly. No pericardial effusion is seen. There is moderate atherosclerotic disease inclu ding coronary arteries. A few scattered nonspecific mediastinal and hilar lymph nodes are seen. Respiratory motion degrades image quality. Pulmonary vascular congestion is suggested. There are pr obable infiltrates in the central and lower lung zones bilaterally, more noticeable on the left which could represent pulmonary edema or pneumonia. No lobar consolidation is seen. There is no pleural fluid or pneumothorax. The bones reveal no acute abnormality. IMPRESSION: 1. Cardiomegaly, pulmonary vascular congestion and central to lower lung infiltrates bilaterally whi ch could represent pulmonary edema or pneumonia. Correlate clinically. 2. Moderate atherosclerosis.
--- NOTE | 2018-09-13 15:35 | US ---
EXAM: ULTRASOUND LOWER EXTREMITY VENOUS DOPPLER EXAM HISTORY: Pain and swelling. FINDINGS: Bilateral lower extremity venous Doppler exam. Real time lancaster-scale, Doppler spectral raymond lysis and color-flow Doppler imaging performed. The veins targeted for evaluation include the common femoral, greater saphenous, profundus, femoral, popliteal, peroneal, anterior tibial and posterior t ibial. The posterior tibial and anterior tibial veins could not be seen. The evaluated veins demonstrated n ormal spontaneous flow and compression without evidence of thrombosis. There is a right popliteal fossa fluid collection measuring 5 x 2 x 2 cm. IMPRESSION: 1. Some limitations to the exam as described. No venous thrombosis identified within the areas eval uated. 2. Probable right-sided Agrawal's cyst.
--- NOTE | 2018-09-13 15:58 | ED.PDOC ---
General ED Provider: Dr. OLIVER RICHMOND Chief Complaint: Altered Mental Status Stated Complaint: BILATERAL LOWER EXT EDEMA AND SOME ALTERED L.O.C BUT, PT ARRIVED FULLY ALERT C/O LEG EDEMA Time Seen by Physician: 13:22 (SEE PHOTOS) Mode of Arrival: Ambulance Information Source: Patient Exam Limitations: No limitations Primary Care Provider: [facility] Nursing and Triage Documentation Reviewed and Agree: Yes Does patient meet sepsis criteria?: No System Inflammatory Response Syndrome: Not Applicable Sepsis Protocol: For patient's 13 years and over: Temp is 96.8 and below OR 101 and greater Pulse >90 BPM Resp >20/minute Acutely Altered Mental Status Are patient's symptoms suggestive of a new infection, such as: -Pneumonia -Skin, Soft Tissue -Endocarditis -UTI -Bone, Joint Infection -Implantable Device -Acute Abdominal Infection -Wound Infection -Meningitis -Blood Stream Catheter Infection -Unknown Musculoskeletal Complaint Exam - Lower Extremity Complaint/Exam Location of Pain: Reports: Right, Left, Leg ( EDEMA SEE PHOTOS) Mechanism of Injury: Reports: No known trauma Onset/Duration: UNKNOWN Symptoms Are: Still present Initial Severity: Moderate Current Severity: Moderate Location: Reports: Discrete Character: Reports: Aching Alleviating: Reports: Rest Aggravating: Reports: Movement Able to Bear Weight: No Associated Signs and Symptoms: Reports: Swelling, Redness (SEE PHOTOS). Denies : Bruising, Fever, Weakness, Numbness, Tingling Septic Arthritis Risk Factors: Reports: Extremes of age Related Surgical History: Reports: None Lower Extremity Findings: Present: Swelling (SEE PHOTOS) NV Bundle Intact Distal to Injury: No (NO INJURY) Compartment Syndrome Risk Factors: Absent: Pain, Paralysis, Pallor, Pulselessness, Paresthesias Mikala's Sign Present: No Differential Diagnoses: Other (CELLULITIS, CHRONIC VENOUS STASIS) Review of Systems - Review Of Systems Constitutional: Reports: No symptoms Eyes: Reports: No symptoms Ears, Nose, Mouth, Throat: Reports: No symptoms Respiratory: Reports: No symptoms Cardiac: Reports: No symptoms GI: Reports: No symptoms : Reports: No symptoms Musculoskeletal: Reports: Other (LEG EDEMA ) Skin: Reports: No symptoms Neurological: Reports: No symptoms Endocrine: Reports: No symptoms Hematologic/Lymphatic: Reports: No symptoms All Other Systems: Reviewed and Negative Past Medical History - Past Medical History Previously Healthy: No Endocrine: Reports: Unknown Cardiovascular: Reports: Hypertension, A-Fib Respiratory: Reports: Unknown Hematological: Reports: Unknown Gastrointestinal: Reports: Unknown Genitourinary: Reports: Unknown Neuro/Psych: Reports: Unknown Musculoskeletal: Reports: Unknown Cancer: Reports: Unknown - Surgical History General Surgical History: Reports: Unknown - Family History Family History: Reports: Unknown - Social History Smoking Status: Former smoker Hx Substance Use: No Alcohol Screening: None Physical Exam - Physical Exam Appearance: Ill-appearing Ill-appearing: Moderate Pain Distress: Mild Eyes: ANDREIA, EOMI, Conjunctiva clear ENT: Ears normal, Nose normal, Oropharynx normal Respiratory: Rhonchi Cardiovascular: RRR, Pulses normal, No rub, No murmur GI/: Soft, Nontender, No masses, Bowel sounds normal, No Organomegaly Musculoskeletal: Edema (SEE PHOTOS) Skin: Warm, Dry, Normal color Neurological: Sensation intact, Motor intact, Reflexes intact, Cranial nerves intact, Alert, Oriented Psychiatric: Affect appropriate, Mood appropriate Interpretation - Radiology Interpretation Radiology Interpretation By: Radiologist Radiology Results: No acute changes (NO DVT, POSSIBLE INFILTRATE LOWER LUNGS) Re-Evaluation - Re-Evaluation Time of Re-Evaluation: 14:00 Status: Unchanged Vital Signs Stable: Yes Pain Level: 0 Appearance: NAD Lungs: Clear Skin: Warm and Dry Neuro: Alert and Oriented X3 CV: RRR Additional Comments: NO RESPIRATORY DISTRESS , LEG EDEMA SEE PHOTOS NO MENTAL ISSUES - Re-Evaluation Time of Re-Evaluation: 16:00 Status: Unchanged Vital Signs Stable: Yes Pain Level: 0 Appearance: NAD Skin: Warm and Dry Neuro: Alert and Oriented X3 CV: RRR (STILL NO NEURO ISSUES FULLY ALERT) Physician Notification - Case Discussed Physician Notified: PMD Time of Notification: 16:01 (ADMITT TO [facility]) Admit To: Inpatient Critical Care Note - Critical Care Note Total Time (mins): 0 Course - Course Hematology/Chemistry: 09/13/18 13:50 09/13/18 13:50 Orders, Labs, Meds: Lab Review 09/13/18 09/13/18 09/13/18 13:29 13:50 13:50 WBC 15.44 H RBC 4.25 L Hgb 12.3 L Hct 39.8 L MCV 93.6 MCH 28.9 MCHC 30.9 L RDW Coeff of Julian 15.9 H Plt Count 188 Immature Gran % (Auto) 0.8 Neut % (Auto) 90.5 Lymph % (Auto) 2.6 L Ransom % (Auto) 6.0 Eos % (Auto) 0.0 Baso % (Auto) 0.1 Immature Gran # (Auto) 0.1 Neut # (Auto) 14.0 H Lymph # (Auto) 0.4 L Ransom # (Auto) 0.9 Eos # (Auto) 0.0 Baso # (Auto) 0.0 PT 11.5 H INR 1.15 APTT 34.3 Puncture Site Lrad O2 Saturation 97.0 ABG pH 7.408 ABG pCO2 42.1 ABG pO2 88.0 ABG HCO3 26.5 H ABG Total CO2 28 ABG Base Excess 2 Pierre Test + O2 Delivery Device Nc Oxygen Liter Flow 2.00 Sodium Potassium Chloride Carbon Dioxide Anion Gap BUN Creatinine Estimated GFR (MDRD) BUN/Creatinine Ratio Glucose Lactic Acid Calcium Total Bilirubin AST ALT Alkaline Phosphatase Total Creatine Kinase CK-MB (CK-2) CK-MB (CK-2) % Troponin I Total Protein Albumin Globulin Albumin/Globulin Ratio Procalcitonin Urine Color Urine Clarity Urine pH Ur Specific Conrad Urine Protein Urine Glucose (UA) Urine Ketones Urine Blood Urine Nitrite Urine Bilirubin Urine Urobilinogen Ur Leukocyte Esterase Urine Microscopic WBC Ur Squamous Epith Cells Amorphous Sediment Urine Bacteria Influ A Molecular Assay Influ B Molecular Assay 09/13/18 09/13/18 09/13/18 13:50 13:50 13:50 WBC RBC Hgb Hct MCV MCH MCHC RDW Coeff of Julian Plt Count Immature Gran % (Auto) Neut % (Auto) Lymph % (Auto) Ransom % (Auto) Eos % (Auto) Baso % (Auto) Immature Gran # (Auto) Neut # (Auto) Lymph # (Auto) Ransom # (Auto) Eos # (Auto) Baso # (Auto) PT INR APTT Puncture Site O2 Saturation ABG pH ABG pCO2 ABG pO2 ABG HCO3 ABG Total CO2 ABG Base Excess Pierre Test O2 Delivery Device Oxygen Liter Flow Sodium 139.3 Potassium 3.92 Chloride 103.5 Carbon Dioxide 29.3 Anion Gap 10.42 BUN 27.6 H Creatinine 1.11 H Estimated GFR (MDRD) 65.00 BUN/Creatinine Ratio 24.86 Glucose 136.3 H Lactic Acid 1.00 Calcium 9.41 Total Bilirubin 0.61 AST 27.5 ALT 17.1 Alkaline Phosphatase 65.8 Total Creatine Kinase 134.9 CK-MB (CK-2) 0.285 CK-MB (CK-2) % 0.2100 Troponin I 0.041 Total Protein 7.50 Albumin 3.78 Globulin 3.72 Albumin/Globulin Ratio 1.01 Procalcitonin 5.13 Urine Color Urine Clarity Urine pH Ur Specific Conrad Urine Protein Urine Glucose (UA) Urine Ketones Urine Blood Urine Nitrite Urine Bilirubin Urine Urobilinogen Ur Leukocyte Esterase Urine Microscopic WBC Ur Squamous Epith Cells Amorphous Sediment Urine Bacteria Influ A Molecular Assay Influ B Molecular Assay 09/13/18 09/13/18 14:13 14:15 WBC RBC Hgb Hct MCV MCH MCHC RDW Coeff of Julian Plt Count Immature Gran % (Auto) Neut % (Auto) Lymph % (Auto) Ransom % (Auto) Eos % (Auto) Baso % (Auto) Immature Gran # (Auto) Neut # (Auto) Lymph # (Auto) Ransom # (Auto) Eos # (Auto) Baso # (Auto) PT INR APTT Puncture Site O2 Saturation ABG pH ABG pCO2 ABG pO2 ABG HCO3 ABG Total CO2 ABG Base Excess Pierre Test O2 Delivery Device Oxygen Liter Flow Sodium Potassium Chloride Carbon Dioxide Anion Gap BUN Creatinine Estimated GFR (MDRD) BUN/Creatinine Ratio Glucose Lactic Acid Calcium Total Bilirubin AST ALT Alkaline Phosphatase Total Creatine Kinase CK-MB (CK-2) CK-MB (CK-2) % Troponin I Total Protein Albumin Globulin Albumin/Globulin Ratio Procalcitonin Urine Color Yellow Urine Clarity Clear Urine pH 5.0 Ur Specific Conrad >=1.030 Urine Protein 2+ Urine Glucose (UA) Negative Urine Ketones Negative Urine Blood Negative Urine Nitrite Negative Urine Bilirubin Negative Urine Urobilinogen 1.0 Ur Leukocyte Esterase Negative Urine Microscopic WBC 0-2 Ur Squamous Epith Cells 0-2 Amorphous Sediment 2+ Urine Bacteria Trace Influ A Molecular Assay Negative by naat Influ B Molecular Assay Negative by naat Orders Category Date Time Status ABG DRAW REQUEST Stat CARDIO 09/13/18 13:29 Completed EKG-(ED ONLY) Stat CARDIO 09/13/18 13:28 Completed ABG Stat LAB 09/13/18 13:29 Completed BLOOD CULTURE Stat LAB 09/13/18 14:02 Received CBC W/ AUTO DIFF Stat LAB 09/13/18 13:50 Completed COMPREHENSIVE METABOLIC PANEL Stat LAB 09/13/18 13:50 Completed CREATINE KINASE Stat LAB 09/13/18 13:50 Completed FLU A/B MOLECULAR Stat LAB 09/13/18 14:15 Completed LACTIC ACID Stat LAB 09/13/18 13:50 Completed PARTIAL THROMBOPLASTIN TIME Stat LAB 09/13/18 13:50 Completed PROCALCITONIN Stat LAB 09/13/18 13:50 Completed PT WITH INR Stat LAB 09/13/18 13:50 Completed TROPONIN I Stat LAB 09/13/18 13:50 Completed URINALYSIS C & S IF INDICATED Stat LAB 09/13/18 14:13 Completed Lidocaine HCl [Uro-Jet] MEDS 09/13/18 14:01 Discontinued 10 ml [id number] .STK-MED ONE Piperacillin Sodium/Tazobactam [Zosyn 4.5 gm] 4.5 gm MEDS 09/13/18 13:33 Discontinued 0.9 % Sodium Chloride [Sodium Chloride] 100 ml IV ONCE Sodium Chloride 0.9% [Sodium Chloride] 1,000 ml MEDS 09/13/18 13:33 Active IV 100 mls/hr CT CHEST W/O CONTRAST Stat RADS 09/13/18 13:[address] HEAD W/O CONTRAST Stat RADS 09/13/18 13:31 Completed U/S VENOUS SCAN MEAGAN LEGS Stat RADS 09/13/18 13:30 Completed Medications Generic Name Dose Route Start Last Admin Trade Name Freq PRN Reason Stop Dose Admin Sodium Chloride 1,000 mls @ 100 mls/hr 09/13/18 13:33 09/13/18 15:11 Sodium Chloride IV 09/13/18 23:32 100 mls/hr .Q10H STA Administration Discontinued Medications Generic Name Dose Route Start Last Admin Trade Name Freq PRN Reason Stop Dose Admin Piperacillin Sod/Tazobactam 100 mls @ 100 mls/hr 09/13/18 13:33 09/13/18 15: 11 Sod 4.5 gm/ Sodium Chloride IV 09/13/18 14:32 100 mls/hr ONCE STA Administration Vital Signs: Temp Pulse Resp BP Pulse Ox 09/13/18 13:22 100.9 F H 108 H 24 93/58 L 96 Departure - Departure Time of Disposition: 16:01 Disposition: ADMITTED INPATIENT Discharge Problem: Cellulitis of lower extremity Qualifiers: Laterality: unspecified laterality Qualified Code(s): L03.119 - Cellulitis of unspecified part of limb Instructions: Cellulitis (ED) Condition: Good Pt referred to PMD for follow-up: Yes IPMP verified?: No Additional Instructions: Please call your Family Physician as soon as possible to schedule a follow-up appointment. Allergies/Adverse Reactions: Allergies Sulfa (Sulfonamide Antibiotics) Adverse Reaction (Verified 09/13/18 14:25) Home Medications: Ambulatory Orders Spironolactone [Aldactone] 50 mg PO DAILY 06/20/17 Diphenhydramine HCl [Benadryl] 25 mg PO Q6HR PRN 11/25/17 Apixaban [Eliquis] 5 mg PO BID 12/29/17 Atorvastatin Calcium 10 mg PO QPM 12/29/17 Bisacodyl [Laxative] 10 mg PO DAILY PRN 12/29/17 Fluticasone Furoate [Flonase Sensimist] 2 sprays GISSELL Q6H PRN 12/29/17 Magnesium Hydroxide [Milk of Magnesia] 30 ml PO DAILY PRN 12/29/17 Multivitamin [Multi-Vitamin Daily] 1 cap PO DAILY 01/02/18 Ferrous Sulfate 325 mg PO DAILY #30 tablet 01/06/18 Acetaminophen [Tylenol] 2 tab PO Q8H PRN 03/27/18 Carvedilol [Coreg] 12.5 mg PO BIDWM #60 tablet 04/03/18 Losartan Potassium [Cozaar] 25 mg PO DAILY #30 tablet 04/03/18 Digoxin [Lanoxin] 125 mcg PO [id number] 09/13/18 Triamcinolone Acetonide [Triamcinolone Acetonide 0.1% Cream] 15 gm TP DAILY 12/27 Disposition Discussed With: Patient, Family
[2018-09-13] MEDS ORDERED: BISACODYL 10 MG PO PRN (16:03)
[2018-09-13] MEDS ORDERED: TYLENOL PO PRN (16:03)
[2018-09-13] MEDS ORDERED: DIGOXIN 125 MCG PO SCH (16:15)
[2018-09-13] MEDS: VANCOMYCIN 1.5 GM in SODIUM CHLORIDE 250 ML IV STA ×2 (16:27→16:59)
[2018-09-13] MEDS ORDERED: SODIUM CHLORIDE 1,000 ML IV SCH (16:30)
[2018-09-13] MEDS ORDERED: DULCOLAX PO PRN (16:46)
[2018-09-13 17:36] VITALS: BMI 49.8
[2018-09-13] MEDS: COREG PO SCH (17:36)
[2018-09-13] MEDS: LIPITOR PO SCH (17:36)
[2018-09-13] MEDS: ZOSYN 3.375 GM 3.375 GM in SODIUM CHLORIDE 50 ML IV SCH ×2 (20:04→23:38)
[2018-09-13] MEDS: LASIX IVP SCH (21:29)
[2018-09-13] MEDS: ELIQUIS PO SCH (21:30)
[2018-09-14] MEDS ORDERED: VANCOMYCIN 1 GM in SODIUM CHLORIDE 250 ML IV SCH (05:30)
[2018-09-14] MEDS: LASIX IVP SCH (05:31)
[2018-09-14] MEDS ORDERED: NYSTOP POWDER TP ONE (08:18)
[2018-09-14] MEDS ORDERED: KENALOG 0.1% TP SCH (09:00)
[2018-09-14] MEDS ORDERED: ROCEPHIN 1 GM in SODIUM CHLORIDE 50 ML IV SCH (09:00)
[2018-09-14] MEDS ORDERED: NON-FORMULARY MEDICATION (Ferrous Sulfate [Ferrous Sulfate] 325 MG) PO SCH (09:00)
[2018-09-14] MEDS: FERROUS SULFATE PO SCH (09:04)
[2018-09-14] MEDS: ALDACTONE PO SCH (09:04)
[2018-09-14] MEDS: COZAAR PO SCH (09:04)
[2018-09-14] MEDS: COREG PO SCH ×2 (09:04→17:03)
[2018-09-14] MEDS: LANOXIN PO SCH (09:06)
[2018-09-14] MEDS: NYSTOP POWDER TP SCH ×3 (09:07→20:07)
[2018-09-14] MEDS: ELIQUIS PO SCH ×2 (09:09→20:03)
[2018-09-14] MEDS: AMPICILLIN SODIUM 2 GM in SODIUM CHLORIDE 100 ML IV SCH ×3 (12:14→23:37)
[2018-09-14] MEDS: OXYCODONE PO PRN (12:39)
[2018-09-14] MEDS: KENALOG 0.1% TP SCH (12:43)
[2018-09-14] MEDS ORDERED: NYSTATIN CREAM TP ONE (12:49)
[2018-09-14] MEDS: NYSTATIN CREAM TP SCH ×2 (15:07→20:07)
[2018-09-14] MEDS: LIPITOR PO SCH (17:04)
[2018-09-15] MEDS: LASIX IVP SCH (05:34)
[2018-09-15] MEDS: AMPICILLIN SODIUM 2 GM in SODIUM CHLORIDE 100 ML IV SCH ×4 (05:34→23:34)
[2018-09-15] MEDS: ALDACTONE PO SCH (09:08)
[2018-09-15] MEDS: COREG PO SCH ×2 (09:08→16:43)
[2018-09-15] MEDS: COZAAR PO SCH (09:09)
[2018-09-15] MEDS: FERROUS SULFATE PO SCH (09:09)
[2018-09-15] MEDS: KENALOG 0.1% TP SCH (09:09)
[2018-09-15] MEDS: NYSTOP POWDER TP SCH ×3 (09:10→22:33)
[2018-09-15] MEDS: NYSTATIN CREAM TP SCH ×3 (09:10→22:34)
[2018-09-15] MEDS: LANOXIN PO SCH (09:13)
[2018-09-15] MEDS: ELIQUIS PO SCH ×2 (09:13→22:28)
--- NOTE | 2018-09-15 09:47 | HP ---
DATE OF SERVICE: 09/13/18 CHIEF COMPLAINT: Shortness of breath, fever, confusion, redness to the legs. HISTORY OF PRESENT ILLNESS: The patient, the day before presentation to the emergency room was noted by the alf personnel to be confused with low oxygen saturation. The patient, according to the alf seemed to be fine today with regards to the confusion but the patient has increasing or worsening leg edema which he also had previously with some redness and warm to touch. He also complained of back and knee pain on the right after the physical therapy. The patient is now experiencing shortness of breath and indeed, the patient on examination after admnission to the floor from the emergency room, was dyspneic and tachypneic. The patient was admitted for: 1) cellulitis bilateral lower extremities; 2) congestive heart failure; 3) confusion; 4) worsening leg edema. CBC showed mild to moderate leukocytosis, elevated neutrophils, moderate anemia. Arterial blood gases on 2L of oxygen acceptable. BUN elevated 27.6, creatinine 1.11. EGFR 65. Lactic acid 1.001. CK plus MB plus troponin normal. NT -Pro-BNP elevated 2,970. Procalcitonin 5.13. This patient was given a gram of Vancomycin in the emergency room and also initiated on Zosyn 3.375 gm and continued every 6 hours. PAST PERSONAL HISTORY: History of atrial fibrillation, history of hypoxemia on this admission secondary to significant edema of lower extremities with serous drainage and crusted material. Previous cholecystectomy, hernia repair, bladder carcinoma and problems with pain elbows, knees, shoulders and ankles. He had surgery of the right ankle and right knee times three. Carpal tunnel surgery plus bilateral elbow surgery. Borderline diabetic. Colonoscopy 2015, endoscopy 2004. He was admitted also 03/27/18 because of swelling and redness of both legs. FAMILY HISTORY: Mother had heart problems as well as father. Mother . SOCIAL HISTORY: The patient is single and now resides at [facility]. He stopped smoking some 7 years ago. He does not drink alcohol and no illicit drugs. MEDICATIONS: (PRIOR TO THIS ADMISSION) Aldactone 50 mg daily Benadryl 25 mg q.6hr p.r.n. Magnesium Hydroxide 30 cc daily as needed Lipitor 10 mg daily Eliquis 5 mg twice a day Flonase nasal two sprays to each nostril q.6hr p.r.n. and it should be only twice a day Dulcolax 10 mg tablet daily as needed Multivitamin one daily Ferrous Sulfate 325 mg daily Tylenol 1000 mg q.8hr p.r.n. Losartan 25 mg daily Carvedilol 12.5 mg twice a day Triamcinolone cream apply to the legs daily Digoxin 0.125 mg daily ALLERGIES: SULFONAMIDE REVIEW OF SYSTEMS: CONSTITUTIONAL: Fever but no chills. Fatigue. Poor appetite. 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 No headaches but has generalized weakness, unable to now ambulate. No syncopal episode. No seizure disorder. VISUAL: No symptoms. AUDITORY: Negative. RESPIRATORY: The patient has dyspnea and tachypnea. No significant cough. No hemoptysis. CARDIOVASCULAR: The patient has shortness of breath. No chest pain or tightness. History of previous congestive heart failure. GASTROINTESTINAL: Appetite is poor but no abdominal pain. No diarrhea. GENITOURINARY: The patient has a Mcrae catheter in place. MUSCULOSKELETAL: The patient is complaining of pain in the knees as well as the back after physical therapy. Also complains of pain in the leg more on the right. ENDOCRINE: Obese and borderline diabetic. INTEGUMENT: He has red areas in the thigh and also some irritation in the groin plus in the legs. There is a foul smell in the legs, more on the left side. Edema is markedly firm on both legs and crusted and the skin is markedly thick. HEMATOLOGIC: Moderate anemia. No prolonged bleeding or spontaneous bleeding. PSYCHIATRIC: Affect appears to be normal. The patient however today seemed to be slow or dull. PHYSICAL EXAMINATION: GENERAL: The patent is alert, oriented times four, dyspneic and tachypneic. VITAL SIGNS: Temperature 100.9, pulse 108, blood pressure 93/58, respiratory rate 24, oxygen saturation 96 on 2L. HEAD: Unremarkable. Scalp: No active dermatitis. Face: Symmetrical, equal and rounded. No facial weakness. EYES: Pupils equal/reactive to light. Conjunctivae not pale. Sclerae not icteric. MOUTH: Unremarkable. THROAT: No inflammation, tumors or exudate. NECK: No masses. No bruit. CHEST: Symmetrical and equal. Respirations are rapid. LUNGS: Bilateral rales on both posterior chest reno with some expiratory wheezing. HEART: Audible and slightly tachycardic. No murmur. ABDOMEN: Markedly protuberant. No remarkable tenderness. Bowel sounds are active. EXTERNAL GENITALIA: Some irritation in the groin and medial thigh. There is also redness in the medial thigh more on the left side. LOWER EXTREMITIES: Both legs are markedly edematous, crusted, notice skin thick and irregular. Pulses could not be palpated. UPPER EXTREMITIES: Symmetrical and equal. ASSESSMENT: 1. CONGESTIVE HEART FAILURE 2. PROBABLE PNEUMONIA 3. CELLULITIS 4. CONFUSION PROBABLY SECONDARY TO FEBRILE ILLNESS 5. MORBID OBESITY 6. HISTORY OF OBSTRUCTIVE SLEEP APNEA 7. LACK OF MOTIVATION TO GET BETTER 8. DIABETES MELLITUS 9. CHRONIC KIDNEY DISEASE, STAGE 3 10. HISTORY OF CORONARY ARTERY DISEASE PROGNOSIS: Guarded. TIME SPENT: GREATER THAN 65 MINUTES MTDD
--- NOTE | 2018-09-15 09:55 | PN ---
DATE OF SERVICE: 09/14/18 SUBJECTIVE: The patient is alert and looking better. He is not dyspneic or tachpneic as yesterday. He had good urine output. He still has rales in both lung reno. Edema on both legs has decreased. The blood culture did grow gram positive cocci in chains and possibly streptococcal bacteria. I had discussed the medication with the PharmD and I felt this patient probably will do well with just Penicillin. The patient had received Vancomycin as well as Zosyn but the patient will be given Ampicillin 2 gm intravenously q.6hr. Medication will be changed according to the ID and SCAR. Again explained to the patient that we need to have a very good attempt at trying to reduce weight. He needs to have a very good determination to do weight reduction and mobility. CBC today showed slightly lower WBC, potassium slightly below normal 3.29, sodium chloride normal. C02 higher 34.9. The patient is no longer tachypneic probably accounting for the increased co2. EGFR is down to 60 from 65 yesterday. The creatinine has increased slightly to 1.20. BUN is down to 23.7. The patient is encouraged to drink as much liquid. Sugar is down to 118 from 136. The patient is receiving 60 mg Lasix IV daily. Will probably stop the IV after tomorrow. MTDD
[2018-09-15] MEDS: K-DUR PO SCH (12:38)
[2018-09-15] MEDS: LIPITOR PO SCH (16:43)
[2018-09-16] MEDS ORDERED: MYLICON PO STA ×4 (03:18→03:32)
[2018-09-16] MEDS ORDERED: MYLICON ONE (03:23)
[2018-09-16] MEDS ORDERED: DEMADEX PO SCH (06:30)
[2018-09-16] MEDS: AMPICILLIN SODIUM 2 GM in SODIUM CHLORIDE 100 ML IV SCH ×2 (06:57→11:30)
[2018-09-16] MEDS: FERROUS SULFATE PO SCH (08:57)
[2018-09-16] MEDS: ALDACTONE PO SCH (08:57)
[2018-09-16] MEDS: COREG PO SCH (08:57)
[2018-09-16] MEDS: COZAAR PO SCH (08:58)
[2018-09-16] MEDS: K-DUR PO SCH (08:58)
[2018-09-16] MEDS: ELIQUIS PO SCH (08:58)
[2018-09-16] MEDS: KENALOG 0.1% TP SCH (09:00)
[2018-09-16] MEDS: NYSTATIN CREAM TP SCH (09:00)
[2018-09-16] MEDS: NYSTOP POWDER TP SCH (09:01)
[2018-09-16] MEDS ORDERED: LANOXIN IVP STA (12:56)
[2018-09-16] MEDS ORDERED: LASIX IVP STA (12:56)
[2018-09-16] MEDS ORDERED: DECADRON 4 MG/ML SDV IVP STA (12:56)
[2018-09-16] MEDS ORDERED: PROTONIX IV IVP STA (12:57)
[2018-09-16] MEDS ORDERED: ZOFRAN 4 MG/2 ML IVP STA (12:57)
[2018-09-16] MEDS ORDERED: DECADRON 4 MG/ML SDV ONE (13:26)
[2018-09-16] MEDS ORDERED: LANOXIN ONE (13:27)
[2018-09-16] MEDS ORDERED: PROTONIX IV ONE (13:27)
[2018-09-16] MEDS ORDERED: ZOFRAN 4 MG/2 ML ONE (13:27)
[2018-09-16] MEDS ORDERED: LASIX ONE (13:27)
[2018-09-16] MEDS: OXYCODONE PO PRN (13:43)
[2018-09-16 13:57] VITALS: BP 130/82; TEMP 97.4
== END 2018-09-16 14:21 | disposition swing bed (61) | DRG 812 ==
LOC: ED 13:21 → MEDSURG B 16:12 → SCU 22:05
PROVIDERS: ADMIT General Practice; ATTEND General Practice
DX: D50.9 Iron deficiency anemia, unspecified (principal); R55 Syncope and collapse; I95.1 Orthostatic hypotension
CPT/HCPCS: 36415; 80053; 80162; 81001; 82550; 82553; 82803; 83605; 83880; 84145; 84484; 85025; 85610; 85730; 87040; 87070; 87081; 87186; 87493; 87502; 93005; 93010; 96365; 96367; 97802; 99284

== ENCOUNTER 2018-09-17 12:49 | Outpatient (CLI) | payer OTHER ==
[2018-09-16 14:55] VITALS: BMI 49.1
== END 2018-09-17 13:12 | disposition short-term general hospital (02) ==
LOC: AMBL 12:49
PROVIDERS: ATTEND Emergency Medicine
DX: K56.609 Unspecified intestinal obstruction, unspecified as to partial versus complete obstruction (principal); R10.9 Unspecified abdominal pain; I48.91 Unspecified atrial fibrillation; R00.0 Tachycardia, unspecified

== ENCOUNTER 2018-10-03 03:36 | Outpatient (CLI) ==
[2018-09-16 14:55] VITALS: BMI 49.1
== END 2018-10-03 03:52 | disposition short-term general hospital (02) ==
LOC: AMBL 03:36
PROVIDERS: ATTEND Internal Medicine Geriatric Medicine
DX: R41.0 Disorientation, unspecified (principal); M25.561 Pain in right knee; A04.72 Enterocolitis due to Clostridium difficile, not specified as recurrent; R60.1 Generalized edema; I48.91 Unspecified atrial fibrillation; E66.9 Obesity, unspecified; W06.XXXA Fall from bed, initial encounter; Y92.122 Bedroom in nursing home as the place of occurrence of the external cause

== ENCOUNTER 2018-10-06 20:46 | Outpatient (CLI) ==
[2018-09-16 14:55] VITALS: BMI 49.1
== END 2018-10-06 20:47 | disposition home or self-care (01) ==
LOC: LAB 20:46
PROVIDERS: ATTEND General Practice
DX: A04.72 Enterocolitis due to Clostridium difficile, not specified as recurrent (principal)
CPT/HCPCS: 87015; 87045; 87493; 87899

== ENCOUNTER 2018-11-01 23:47 | Outpatient (CLI) ==
[2018-09-16 14:55] VITALS: BMI 49.1
== END 2018-11-01 23:48 | disposition home or self-care (01) ==
LOC: NONPT 23:47
PROVIDERS: ATTEND General Practice
DX: H57.89 Other specified disorders of eye and adnexa (principal)
CPT/HCPCS: 87070

== ENCOUNTER 2019-04-21 17:31 | Inpatient (IN) ==
[2019-04-21 17:44] VITALS: BMI 43.0
[2019-04-21] MEDS ORDERED: ZOFRAN 4 MG/2 ML IVP STA (17:48)
[2019-04-21] MEDS ORDERED: SODIUM CHLORIDE 1,000 ML IV STA (17:48)
--- NOTE | 2019-04-21 18:20 | ED.PDOC ---
General ED Provider: Dr. JUN BIRMINGHAM Chief Complaint: Diarrhea Stated Complaint: i was sent from the [facility] for vomiting and diarrhea Time Seen by Physician: 18:44 Mode of Arrival: Stretcher Information Source: Patient, Skilled Nursing and EMT Primary [facility] Nursing and Triage Documentation Reviewed and Agree: Yes Does patient meet sepsis criteria?: No System Inflammatory Response Syndrome: Not Applicable Sepsis Protocol: For patient's 13 years and over: Temp is 96.8 and below OR 101 and greater Pulse >90 BPM Resp >20/minute Acutely Altered Mental Status Are patient's symptoms suggestive of a new infection, such as: -Pneumonia -Skin, Soft Tissue -Endocarditis -UTI -Bone, Joint Infection -Implantable Device -Acute Abdominal Infection -Wound Infection -Meningitis -Blood Stream Catheter Infection -Unknown GI Complaint Exam Vomiting/Diarrhea Complaint/Exam Onset/Duration: a few hours Symptoms Are: Still present Initial Severity: Mild Current Severity: Moderate Character of Vomiting: Reports Non-bilious Character of Diarrhea: Reports Watery Alleviating: Reports NPO Associated Signs and Symptoms: Denies Dizziness, Light-headedness, Melena, Hematemesis, Fever, Abdominal pain and Cramping Abdominal Findings: Present None Kussmaul Respirations Present: No Differential Diagnoses: Viral Gastroenteritis Review of Systems Review Of Systems Constitutional: Reports No symptoms Eyes: Reports No symptoms Ears, Nose, Mouth, Throat: Reports No symptoms Respiratory: Reports No symptoms Cardiac: Reports No symptoms GI: Reports Diarrhea, Nausea and Vomiting : Reports No symptoms Musculoskeletal: Reports No symptoms Skin: Reports No symptoms Neurological: Reports No symptoms Endocrine: Reports No symptoms Hematologic/Lymphatic: Reports No symptoms All Other Systems: Reviewed and Negative [facility] Medical History Acute kidney failure Atrial fibrillation Heart failure Hypertension Obesity Repeated falls Rhabdomyolysis Sleep apnea Social History Do you feel safe at home: Yes Physical Exam Physical Exam Appearance: Well-appearing Eyes: ANDREIA, EOMI and Conjunctiva clear ENT: Ears normal Neck: Supple Respiratory: Airway patent Cardiovascular: RRR GI/: Soft Musculoskeletal: Normal strength Skin: Warm Neurological: Sensation intact Psychiatric: Affect appropriate and Mood appropriate Interpretation EKG Interpretation Time of EKG #1: 18:19 Rate: Normal Rhythm: Other (atrial fib) ST Segment: Normal Interpretation: atrial fibrillation Re-Evaluation Re-Evaluation Time of Re-Evaluation: 18:42 Physician Notification Case Discussed Physician Notified: dr forrest Time of Notification: 19:00 Critical Care Note Critical Care Note Total Time (mins): 30 Course Course Hematology/Chemistry: 04/21/19 18:03 04/21/19 18:03 Orders, Labs, Meds: Lab Review 04/21/19 04/21/19 04/21/19 18:03 18:03 18:03 WBC 7.66 RBC 4.62 L Hgb 12.9 L Hct 42.6 MCV 92.2 MCH 27.9 MCHC 30.3 L RDW Coeff of Julian 15.9 H Plt Count 190 Immature Gran % (Auto) 0.5 Neut % (Auto) 86.1 Lymph % (Auto) 6.0 L [place] % (Auto) 7.3 Eos % (Auto) 0.0 Baso % (Auto) 0.1 Immature Gran # (Auto) 0.0 Neut # (Auto) 6.6 Lymph # (Auto) 0.5 L [place] # (Auto) 0.6 Eos # (Auto) 0.0 Baso # (Auto) 0.0 Sodium 138.9 Potassium 3.89 Chloride 100.9 Carbon Dioxide 32.4 H Anion Gap 9.49 BUN 17.5 Creatinine 0.68 Estimated GFR (MDRD) 115.00 BUN/Creatinine Ratio 25.73 Glucose 111.2 H Calcium 9.49 Total Bilirubin 0.68 AST 20.0 ALT 16.0 Alkaline Phosphatase 88.8 Total Creatine Kinase 20.2 L Troponin I < 0.012 Total Protein 7.73 Albumin 4.13 Globulin 3.60 Albumin/Globulin Ratio 1.14 Digoxin < 0.40 L Orders Category Date Time Status EKG-(ED ONLY) Stat CARDIO 04/21/19 17:48 Completed C-DIFF MONITORING (NURSING) BID CARE 04/21/19 17:50 Active ED FUNERAL COUNSELOR APPLIED .ONCE EMERGENCY 04/21/19 17:48 Active ED IV/MEDIPORT/POWERPORT .ONCE EMERGENCY 04/21/19 17:48 Active C. DIFFICILE Routine LAB 04/21/19 17:48 Uncollected CBC W/ AUTO DIFF Stat LAB 04/21/19 18:03 Completed COMPREHENSIVE METABOLIC PANEL Stat LAB 04/21/19 18:03 Completed CREATINE KINASE Stat LAB 04/21/19 18:03 Completed DIGOXIN Stat LAB 04/21/19 18:03 Completed STOOL CULTURE Stat LAB 04/21/19 Uncollected TROPONIN I Stat LAB 04/21/19 18:03 Completed URINALYSIS WITH MICROSCOPIC Stat LAB 04/21/19 17:48 Uncollected 0.9 % Sodium Chloride [Saline Flush] MEDS 04/21/19 17:48 Active 1 syr IVF PRN PRN Ondansetron HCl/Pf [Zofran 4 mg/2 ml] MEDS 04/21/19 17:48 Discontinued 4 mg IVP ONCE STA Sodium Chloride 0.9% [Sodium Chloride] 1,000 ml MEDS 04/21/19 17:[address] ABDOMEN/PELVIS WO CONTRAST Stat RADS 04/21/19 17:48 Taken Medications Generic Name Dose Route Start Last Admin Trade Name Freq PRN Reason Stop Dose Admin Sodium Chloride 1,000 mls @ 1,000 mls/hr 04/21/19 17:48 04/21/19 18:19 Sodium Chloride IV 04/21/19 18:47 1,000 mls/hr BOLUS STA Administration Sodium Chloride 1 syr 04/21/19 17:48 Saline Flush IVF PRN PRN To flush IV Discontinued Medications Generic Name Dose Route Start Last Admin Trade Name Freq PRN Reason Stop Dose Admin Ondansetron HCl 4 mg 04/21/19 17:48 04/21/19 18:20 Zofran 4 Mg/2 Ml IVP 04/21/19 17:49 4 mg ONCE STA Administration Vital Signs: Temp Pulse Resp BP Pulse Ox 04/21/19 17:32 98.7 F 91 H 16 112/83 98 Discharge Plan Discharge Patient Disposition: ADMITTED INPATIENT Discharge Problem: SBO (small bowel obstruction) Prescriptions: No Action Florastor 250 MG capsule 250 mg PO DAILY RF: 0 spironolactone 50 MG tablet 50 mg PO DAILY RF: 0 cholestyramine (with sugar) 4 GM powder in packet 4 g PO DAILY RF: 0 carvedilol [Coreg] 25 MG tablet 25 mg PO DIRECTED RF: 0 hydrocodone-acetaminophen [Martin] 1 EACH tablet 1 ea PO Q8HR PRN (Reason: Analgesia) RF: 0 diltiazem HCl 120 MG tablet 120 mg PO DIRECTED RF: 0 multivitamin [Daily Multi-Vitamin] 1 EACH tablet 1 cap PO DAILY RF: 0 acetaminophen [Mapap Extra Strength] 500 MG tablet 2 tab PO Q8H PRN (Reason: Pain) RF: 0 losartan 25 MG tablet 25 mg PO DAILY Qty: 30 RF: 0 digoxin [Lanoxin] 125 MCG tablet 125 mcg PO DAILY RF: 0 atorvastatin 10 MG tablet 10 mg PO QPM RF: 0 Flonase Sensimist 9.9 ML spray,suspension 2 spry intranasal Q6H PRN (Reason: Nasal Congestion) RF: 0 Eliquis 5 MG tablet 5 mg PO BID RF: 0 ED Provider: JUN BIRMINGHAM Condition: Stable
--- NOTE | 2019-04-21 19:09 | CT ---
Exam: CT abdomen pelvis without intravenous contrast. Comparison: 09/17/2018. Reason for exam: Vomiting. FINDINGS: Old, rib fractures without evidence of pleural effusion, or focal airspace consolidation i n the partially imaged lung bases. The partially imaged heart appears prominent in size. Image interpretation is limited by the lack of intravenous contrast and secondary to the patient's brian dy habitus which excludes portions of the abdomen. The gallbladder has been removed. Thickening of the distal esophageal wall. No evidence of pancreatic ductal dilatation. Hypodensity in the right renal parenchyma measuring 2.1 cm. No hydronephrosis, hydroureter or nephrolithiasis in either kidney. Fluid-filled loops of small bowel are seen throughout the abdomen and pelvis measuring up to 4.7 cm. The appendix appears grossly unremarkable. Atherosclerotic disease is seen within the aorta and distal arterial vasculature. No definite intra-abdominal free air. The bladder appears grossly unremarkable. Degenerative disease in the lumbosacral spine. Impression: 1. Dilated loops of small bowel are seen throughout the abdomen and upper pelvis. No definite trans ition point is seen on the exam. Findings are consistent with at least a partial small bowel obstruc tion. 2. Image interpretation is limited by patient's body habitus excluding portions of the abdomen and t he lack of intravenous contrast administration. 3. Right renal parenchymal hypodensity is statistically a cyst. Ultrasound could be performed for f urther characterization. Findings were discussed directly with the emergency room physician at 1904 hours on 04/21/2019.
[2019-04-21] MEDS: LOVENOX SUBCUT SCH (21:56)
[2019-04-21] MEDS: SODIUM CHLORIDE 0.9%-KCL 20 MEQ 1,000 ML IV SCH (21:56)
[2019-04-22] MEDS: LANOXIN IVP SCH (09:57)
[2019-04-22] MEDS: LOVENOX SUBCUT SCH ×2 (10:01→20:39)
[2019-04-22] MEDS: SODIUM CHLORIDE 0.9%-KCL 20 MEQ 1,000 ML IV SCH ×2 (10:02→20:42)
--- NOTE | 2019-04-22 11:36 | DI ---
EXAM: Two-view abdomen HISTORY: Follow-up small bowel obstruction COMPARISON: CT scan abdomen pelvis 04/21/2019 FINDINGS: Clips are seen in the right upper quadrant from prior cholecystectomy. The area seen the ascending transverse and descending colon. Multiple moderately dilated small bowel loops are again n oted within the abdomen compatible with small bowel obstruction. IMPRESSION: Dilated small bowel loops within the abdomen compatible small bowel obstruction. Colonic air ascending transverse and descending colon
--- NOTE | 2019-04-22 14:40 | CT ---
EXAM: CT abdomen pelvis without contra HISTORY: Severe bouts of diarrhea with vomiting COMPARISON: 04/21/2019 TECHNIQUE: CT abdomen pelvis performed without intravenous contrast. Coronal and sagittal reformatt ed images obtained. FINDINGS: Bilateral lower airway thickening. Mild mosaic attenuation lung bases. Granulomas calcif ication. No free air. No acute abnormalities of the bones. Degenerative change in the spine. Bila teral pars defects L5. Heart moderately enlarged. Evaluation organ parenchyma limited without contr ast. Liver is enlarged. Patient status post cholecystectomy. Pancreas unremarkable. Granulomatous calcification in the spleen. Spleen otherwise unremarkable. Adrenals unremarkable. Small stable r ight renal hypodense lesion. No hydronephrosis or nephrolithiasis. No calculi visualized in normal course of the ureters. Bladder only minimally distended and poorly evaluated, grossly unremarkable. Prostate normal in size. Aorta normal in caliber. Extensive atherosclerosis of the aorta and is br anches. Small right and moderate left fat containing inguinal hernias. Small hiatal hernia. Multip le dilated loops of small bowel without discrete transition point identified. Appendix appears deborah l. Fluid in the colon. Colonic diverticulosis. Small foci of subcutaneous air left abdominal wall likely related to injection of medicine. IMPRESSION: 1. Multiple dilated loops small bowel without discrete transition point identified. Findings likely to a partial or low grade small bowel obstruction. A component of enteritis is possible. Fluid see n in the colon. Small bowel dilation is mildly improved from 04/21/2019. 2. Colonic diverticulosis. Three small hiatal hernia. 4. Hepatomegaly. 5. Cardiomegaly. 6. Extensive atherosclerosis. 7. Right renal hypodensity may reflect a cyst. Recommend correlation with ultrasound.
[2019-04-22] MEDS: NYSTOP POWDER TP SCH (20:45)
[2019-04-23] MEDS: NYSTOP POWDER TP SCH ×2 (08:47→20:48)
[2019-04-23] MEDS: LANOXIN IVP SCH (08:48)
[2019-04-23] MEDS: LOVENOX SUBCUT SCH ×2 (08:51→20:42)
[2019-04-23] MEDS: SODIUM CHLORIDE 0.9%-KCL 20 MEQ 1,000 ML IV SCH ×2 (09:07→18:31)
--- NOTE | 2019-04-23 17:48 | CT ---
EXAM: CT Abdomen Pelvis with oral contrast only. HISTORY: Evaluate for bowel obstruction COMPARISON: 04/22/2019 TECHNIQUE: CT Abdomen Pelvis performed with oral contrast. Coronal and sagital images obtained. FINDINGS: Mild passive atelectasis in the lung bases. Cardiomegaly. The liver, pancreas, spleen, and adrenals are unremarkable. Prior cholecystectomy similar right juan l hypodensity measuring 2.3 cm. No bowel obstruction or abnormal bowel wall thickening. Colonic diverticulosis without diverticuliti s. Oral contrast is seen throughout the large bowel level of the rectum. Normal appendix. No adenop athy. Normal diameter aorta. extensive patchy atherosclerotic calcifications. No abnormal fluid collectio n, free fluid or free air. Fat containing left inguinal hernia. No acute osseous abnormality. IMPRESSION: 1. No bowel or urinary obstruction or acute intra-abdominal finding. 2. Colonic diverticulosis. 3. Right renal cyst. Recommend followup with routine outpatient ultrasound. 4. Extensive atherosclerosis. 5. Cardiomegaly.
[2019-04-24] MEDS: SODIUM CHLORIDE 0.9%-KCL 20 MEQ 1,000 ML IV SCH (03:39)
[2019-04-24] MEDS: NYSTOP POWDER TP SCH (08:20)
[2019-04-24] MEDS: LANOXIN IVP SCH (08:21)
[2019-04-24] MEDS: LOVENOX SUBCUT SCH (08:26)
[2019-04-24 15:07] VITALS: BP 136/86; TEMP 97.7
--- NOTE | 2019-05-03 13:37 | HP ---
DATE OF SERVICE: 04/21/19 CHIEF COMPLAINT: Nausea, vomiting times one and persistent diarrhea. HISTORY OF PRESENT ILLNESS: The patient was transferred from the [facility] to the Emergency Department to be evaluated for concerns of small bowel obstruction. Initial CT scan of the abdomen completed in the Emergency Department on 04/21/19 showed dilated loops of small bowel seen throughout the abdomen and upper pelvis. No definite transition point was seen on the exam. Findings were consistent with at least a partial small bowel obstruction. Image intreptation was limited due to the patient's body habitus excluding portion of the abdomen and lack of intravenous contrast administration. A right renal parencymal hypodensity is statistically a cyst. Ultrasound could be performed for further characterization. That was the findings on the initial CT scan of the abdomen and pelvis. The patients tells me he was having immense amount of diarrhea prior to being transferred from the [facility] to the Emergency Department. He tells me that it was more than 6 to 7 stools per day and they were very loose and sometimes watery. He only had one episode of vomiting he tells me. He also tells me he had a temperature of 100.4. He tells me he has not had any further episodes of vomiting since that one episode of vomiting. Because of the concerns for a partial small bowel obstruction, the patient was admitted to the hospital for further evaluation and workup. He was placed on NPO status. IV fluids were ordered with potassium to infuse at 100 mls/hr. He was placed on DVT prophylaxis as well. Stool studies were also ordered on this patient for further workup of the persistent diarrhea. The patient has lost approximately 100 lbs in the last couple of months due to strict dieting. He is hoping to have knee surgery and has wanted to have a weight loss surgery as well. PAST MEDICAL HISTORY: Includes acute kidney failure Atrial fibrillation Heart Failure Hypertension Obesity Repeated falls Rhabdomylosis Sleep apnea PAST SURGICAL HISTORY: Not recorded. FAMILY HISTORY: Father with congestive heart failure and mother with coronary artery atherosclerosis. SOCIAL HISTORY: The patient reports former smoker, currently does not smoke. Denies any substance abuse. Denies any alcohol use. MEDICATIONS: Acetaminophen two every 8 hours p.r.n. Eliquis 5 mg twice a day Atorvastatin 10 mg every p.m. Coreg 25 mg as directed Cholestyramine 4 gm p.o. daily Digoxin 125 mcg daily Diltiazem 125 mg p.o. daily Flonase two sprays intranasal every 6 hours p.r.n. [place] one every 8 hours p.r.n. Losartan 25 mg daily Multivitamin one cap daily Florastor 250 mg p.o. daily Spironalactone 50 mg p.o. daily ALLERGIES: SULFA REVIEW OF SYSTEMS: CONSTITUTIONAL: He did have a low grade fever on admission 100.4. Denies any nightsweats. He does report a 100 lb intentional weight loss over the past couple of months. He has been trying to lose weight in preparation for weight loss surgery and also for a knee replacement. HEENT: No reports of headache, nasal drainage or sore throat. CARDIOVASCULAR: Denies any chest pain or irregular rhythm. No orthopnea or peripheral edema. RESPIRATORY: No complaints of any shortness of breath, cough or congestion. GASTROINTESTINAL: He denied any abdominal pain with any of this. He did complain of some nausea, one episode of vomiting, persistent diarrhea. He describes as sometimes watery and sometimes loose. Denies any constipation or blood in stool. GENITOURINARY: No reports of dysuria, hematuria, nocturia or urinary incontinence. MUSCULOSKELETAL: No reports of any muscle pain, joint redness or swelling. He does complain of some chronic knee pain that he suffers with. NEUROLOGIC: No reports of dizziness, any fatigue or neurological deficits. He does have frequent falls but that is due to chronic knee pain and debilitation from his knees. PSYCHIATRIC: No complaints of anxiety, depression or mood changes. ENDOCRINE: No reports of any diabetes mellitus or thyroid disease. INTEGUMENT: No reports of rashes, lesions or skin changes. PHYSICAL EXAMINATION: GENERAL: He is alert. VITAL SIGNS: On admission temperature 98.7, pulse rate 91, blood pressure 112/83, respiratory rate 16, 02 sat 98% on room air. Height 6'4, weight 353 lbs. HEENT: Head normocephalic, atraumatic. Pupils equal/reactive to light. Conjunctivae clear. NECK: Supple. No lymphadenopathy or thyromegaly. No carotid bruits auscultated. CARDIOVASCULAR: He has irregular rate. He does have a history of chronic atrial fibrillation. Lower extremities are a bit jurgen. He does have some mild peripheral edema. LUNGS: Clear. Respirations are even and unlabored. ABDOMEN: Soft. It is nontender on exam. Bowel sounds are positive. Again, no tenderness or any rigidity or rebound tenderness. NEUROLOGIC: Cranial nerves 2-12 grossly intact without any overt neurological deficit. SKIN: Warm and dry. ASSESSMENT: 1. Concerns for partial small bowel obstruction. 2. Persistent diarrhea. 3. Low grade fever. 4. One episode of vomiting with some nausea. 5. Recent significant weight loss that was intentional of 100 lbs. 6. History of atrial fibrillation. 7. History of hypertension. 8. Obesity. 9. History of sleep apnea. 10. History of heart failure. 11. History of kidney failure and rhabdomylosis. PLAN: 1. Monitor the patient closely. 2. Repeat scans will be ordered as well as follow the patient closely with labs. 3. The patient will be kept NPO status at this time. 4. Stool studies have been ordered. 5. Will keep the patient with IV fluids at this time. 6. Monitor stools. 7. Monitor the CT scans to see exactly what is going on. TIME SPENT: GREATER THAN 65 MINUTES MTDD
--- NOTE | 2019-05-03 14:49 | PN ---
DATE OF SERVICE: 04/23/19 SUBJECTIVE: Today we are waiting for the oral contrast CT scan to come back. The patient remained NPO status and he reports that he was hungry and ready to eat. he told me today that he had a normal bowel movement yesterday. He had had no further episodes of vomiting. He did have one liquid stool at 5:00am in the morning and at 9:00am in the morning but yet he did have a normal bowel movement the day prior. He has no had any liquid bowel movements since 9am. Again he was waiting for that contrast CT scan when I had saw him he had not had that done yet. The results are now available. It did not show any bowel or urinary obstruction or acute intraabdominal finding. It did show colonic diverticulosis. It showed a right renal cyst a recommend followup with routine outpatient ultrasound and extensive atherosclerosis and cardiomegaly. VITAL SIGNS: Temperature 97.7 he was afebrile, blood pressure 119/79, respiratory rate 18, O2 saturation 99% on 2 liters per nasal canula. He continued to run atrial fibrillation at a rate of 67 on the monitor. EXAMINATION: HEART: Irregular heart rate LUNGS: Clear ABDOMEN: Soft and nontender. Bowel sounds are positive. MTDD
--- NOTE | 2019-05-04 09:12 | DS ---
DATE OF SERVICE: 04/24/19 FINAL DIAGNOSES: 1. ACUTE GASTROENTERITIS WITH INITIAL THOUGHT THAT THIS IS A PARTIAL SMALL BOWEL OBSTRUCTION HOWEVER THE MOST RECENT CT SCAN OF THE ABDOMEN AND PELVIS WITH ORAL CONTRAST REVEALED THAT THE PATIENT DID NOT HAVE ANY KIND OF BOWEL OR URINARY OBSTRUCTION. 2. NAUSEA WITH EPISODE OF VOMITING MOST LIKELY DUE TO THE ACUTE GASTROENTERITIS THAT WAS MOST LIKELY VIRAL IN ETIOLOGY. 3. DIARRHEA MOST LIKELY DUE TO ACUTE GASTROENTERITIS. 4. DIABETES MELLITUS TYPE 2. 5. OBESITY. 6. HYPERTENSION. 7. CHRONIC ATRIAL FIBRILLATION. 8. HISTORY OF HEART FAILURE. 9. HISTORY OF SLEEP APNEA. 10. HISTORY OF FALLS RELATED TO CHRONIC KNEE PAIN AND OSTEOARTHRITIS. BRIEF HISTORY OF PRESENT ILLNESS/HOSPITAL COURSE: Mr. Thacker was brought to the Emergency Department from [facility] after he had ongoing persistent diarrhea, an episode of nausea with vomiting and some low grade fever. There was initial thought that the patient had partial small bowel obstruction per results of the CT scan of the abdomen and pelvis. However, the patient was kept NPO. IV fluids were given. Repeat contrast CT scan was completed yesterday and it did confirm the patient does not have a partial small bowel obstruction. On exam, yesterday the patient was nontender. He remains nontender today. He did report a small formed bowel movement yesterday. His diarrhea has been slowing and he is having normal bowel movements. He is not having any reports of vomiting. He has been afebrile. Vital signs have been stable. He is running atrial fibrillation with stable heart rate on the monitor. Yesterday when I evaluated him he was waiting to get the contrast CT completed. He did report that he was actually hungry. He has had an intentional weight loss of approximately 100 lbs over the last couple of months as he is trying to lose weight in preparation for weight loss surgery and he is hoping to have knee surgery. He has done very well with this. At discharge today his vital signs are stable. Temperature 97.5, pulse rate 66, BP 141/75, 02 sat 96% on 2L/NC. On telemetry he is running atrial fibrillation 70 to 80 beats/min. LABS AND DIAGNOSTIC TESTING: These have been discussed. As far as labs, white count on 04/23/19 white count normal at 5.06, red blood cells 4.51, hemoglobin 12.5, hematocrit 41.9. His platelet count 160. Electrolytes were normal. DISCHARGE MEDICATIONS: He will resume home medications with no changes. DISCHARGE DIET: He will resume his previous diet as weight loss diet as at the residential. DISCHARGE ACTIVITY: As previous at the residential. He usually needs assistance with any kind of change in position and getting up from the bed to the side of the bed. He has very limited mobility due to severe pain in his knee. DISCHARGE INSTRUCTIONS: Followup appointment - will continue to follow the patient on residential rounds and sooner if needed. TIME SPENT: GREATER THAN 30 MINUTES MTDJessica
== END 2019-04-24 15:49 | disposition short-term general hospital (02) | DRG 392 ==
LOC: ED 17:31 → MEDSURG B 18:55
PROVIDERS: ADMIT General Practice; ATTEND General Practice
DX: R50.9 Fever, unspecified; I10 Essential (primary) hypertension; K52.9 Noninfective gastroenteritis and colitis, unspecified; E11.9 Type 2 diabetes mellitus without complications; E66.9 Obesity, unspecified; R19.7 Diarrhea, unspecified; R11.2 Nausea with vomiting, unspecified; I48.20 Chronic atrial fibrillation, unspecified; K56.609 Unspecified intestinal obstruction, unspecified as to partial versus complete obstruction